=== PATIENT | female | born 1980 ===

== ENCOUNTER 2024-11-28 14:26 | Outpatient (AMB) | payer OTHER, SELFPAY ==
--- NOTE | 2024-11-28 14:39 | MHC.PC.OV ---
Vital Signs 11/28/24 14:41 Height 5 ft 6.54 in Weight 325 lb 4 oz BMI 51.6 BP 130/70 Blood Pressure Location Lt brachial Position Sitting Pulse 87 Pulse Source Pulse Oximeter Temp 97.1 F Temp Source Temporal Artery Scan Pulse Oximetry (%) 99 Oxygen Delivery Method Room Air Intake Visit Reasons: Establish care Intake Note: Patient is a new patient here to establish care for Asthma, hx DVT, Seizure. Transferring care from [facility] ([facility] Medical records have been requested and have not received. Professor Of German Required: No Advertising Sales Associate: Not Required per policy Accompanied by: Self / Same As Patient Allergies No Known Allergies Allergy (Verified 11/28/24 14:48) Medication List - Last Reconciled 11/28/24 by Ana Maria Espinoza PA-C No Known Home Meds Tobacco use date assessed: 11/28/24 Dental Screening Dental Screen Date: 11/28/24 Did you have a dental visit in the last 12 months?: No Did you have a dental problem in the last 6 months where you did not have access to dental care?: No Was dental information given to patient?: No HPI Establish care HPI Details 44 year old female coming to the office for the first time. She was seen by her last PCP 7 years ago. Presenting with recurrent leg swelling. She experiences bilateral leg swelling with an intermittent burning sensation that worsens with prolonged standing and improves somewhat with rest and elevation. She notes no pain in the calves or legs but describes a burning sensation when seated, exacerbated by stress, possibly due to her caregiving duties for her wheelchair-dependent daughter. She has attempted to use compression stockings but found them uncomfortable. Additionally, she reports ongoing muscular pain and tension in her back and upper arms related to stress over the past few months. 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 mammogram: order placed pap smear: referral placed [facility] Medical History History of seizure Surgical History History of 2 sections Family History Son Autism Daughter Angélica-Danlos disease Social History Housing: House Alcohol intake: never Patient Tobacco Use Status: Never used Tobacco e-Cigarette/Vaping Use: Never Used Second Hand Smoke Exposure: No service: No Current occupational status: employed Current occupation: [employer] Cognitive needs: No Hearing needs: No Vision needs: Yes (Glasses) Female Reproductive History Menstrual control method: none Questionnaire PHQ-9 Over the last 2 weeks, how often have you been bothered by any of the following problems? 1. Little interest or pleasure in doing things: not at all 2. Feeling down, depressed, or hopeless: not at all 3. Trouble falling or staying asleep, or sleeping too much: not at all 4. Feeling tired or having little energy: not at all 5. Poor appetite or overeating: not at all 6. Feeling bad about yourself - or that you are a failure or have let yourself or your family down: not at all 7. Trouble concentrating on things, such as reading the newspaper or watching television: not at all 8. Moving or speaking so slowly that other people could have noticed. Or the opposite - being so fidgety or restless that you have been moving around a lot more than usual: not at all 9. Thoughts that you would be better off or of hurting yourself in some way: not at all Total score: 0 Depression Screening Interpretation: Negative Depression Screening Done: Yes Source: Developed by Drs. John Barreto, Gabby Gavin, Cliff Marcelo and colleagues, with an educational dave from [employer]. Thrive Questionnaire Date Thrive assessed: 11/28/24 I am a: Patient What is your living situation today?: I have a steady place to live Within the past 12 months, did the food you bought not last and you didn't have the money to get more?: Never true Within the past 12 months, did you worry whether your food would run out before you got money to buy more?: Never true Do you have trouble paying for medicines?: No Do you have trouble getting transportation to medical appointments?: No Do you have trouble paying your heating and electricity bill?: No Do you have trouble taking care of your child, family member or friend?: No Do you have trouble with day-to-day activities such as bathing, preparing meals, shopping, managing finances, etc.?: No Are you currently unemployed and looking for a job?: No Are you interested in more education?: No Please select the resources that you would like help with: None Currently or been in a relationship where the following occur: No concerns reported THRIVE Score: 0 AUDIT C Alcohol Use Questionnaire (AUDIT-C) 1. How often do you have a drink containing alcohol?: Never Total Score: 0 RADHA-7 AMB Questionnaire RADHA-7 Date RADHA - 7 assessed: 11/28/24 Feeling nervous, anxious, or on edge: 0 = Not at all Not being able to stop or control worryin = Not at all Worrying too much about different things: 0 = Not at all Trouble relaxin = Not at all Being so restless that it is hard to sit still: 0 = Not at all Becoming easily annoyed or irritable: 0 = Not at all Feeling afraid as if something awful might happen: 0 = Not at all Total RADHA-7 score (0-4 normal; 5-9 mild; 10-14 moderate; 15-21 severe): 0 Source: Developed by Drs. John Barreto, Gabby Gavin, Cliff Marcelo and colleagues, with an educational dave from [employer]. RADHA-7 Assessment Billing RADHA-7 Assessment Tool: RADHA-7 Assessment 74533 Review of Systems Const Denies body aches, Denies chills, Denies fever(s), Denies headache(s) and Denies poor appetite Eyes Reports no additional complaints ENT Denies dizziness and Denies headache(s) Card Denies chest pain, Denies syncope, Denies irregular heart rhythm, Denies lightheadedness and Denies dyspnea Resp Denies cough and Denies dyspnea GI Denies nausea and Denies vomiting Reports no additional complaints Musc Details: Left shoulder and elbow pain Reports no additional complaints and Denies abnormal gait Skin/Breast Reports system reviewed and no additional complaints, except as documented Neuro Denies abnormal gait, Denies dizziness, Denies syncope and Denies headache(s) Psych Reports no additional complaints Physical exam (Primary Care) Vital Signs: Last Vital Signs Temp 97.1 F 11/28/24 14:41 Pulse 87 11/28/24 14:41 BP 130/70 04/14/25 14:41 Pulse Ox 99 11/28/24 14:41 Oxygen Delivery Method Room Air 11/28/24 14:41 BMI result Body Mass Index 51.6 Tobacco/Smoking Status: Tobacco use Status Tobacco use date assessed 11/28/24 11/28/24 14:46 Patient Tobacco Use Status Never used Tobacco 11/28/24 14:46 e-Cigarette/Vaping Use Never Used 11/28/24 14:46 PHQ-9: PHQ-9 Score PHQ-9: Total score 0 11/29/24 08:16 Depression Screening Interpretation: Negative Thrive Assessment: Date of Thrive Assessment Date Thrive assessed 11/28/24 11/28/24 14:46 Currently or been in a relationship where the following occur: No concerns reported Const General: cooperative, healthy appearing, comfortable and no acute distress Orientation/consciousness: patient oriented x3 HENMT Head: Yes normocephalic Ears: hearing grossly normal bilaterally General nose exam: Normal external nose present Eyes General: appearance normal, both eyes and all related structures Conjunctivae: conjunctivae normal Neck Neck: Yes full ROM and Yes no lymphadenopathy Resp Effort & Inspection: normal respiratory effort Auscultation: clear to auscultation bilaterally, no crackles, no rales, no rhonchi and no wheezes Cardio Rate: regular rate Rhythm: regular rhythm Skin General skin exam: no rashes or lesions noted Neuro General: patient oriented x3 Gait exam (Neuro): Normal gait present Extrem Other: Multiple varicosities of bilateral thighs. No tenderness to palpation of bilateral calves, no swelling, redness or warmth of bilateral calves. Tenderness to palpation over medial aspect of left elbow and pain with flexion and extension of left elbow. Tenderness to palpation over left shoulder General: Yes normal to inspection, Yes full ROM and No edema Psych Affect: normal affect Attitude: cooperative Insight: Good insight present (Psych) Judgement: Good judgement present (Psych) Coding Level of Care Code New Pt Level 4 (81505) Diagnoses Asthma J45.909 History of DVT (deep vein thrombosis) Z86.718 Morbid obesity with BMI of 50.0-59.9, adult E66.01; Z68.43 Screening for hypercholesterolemia Z13.220 Screening for diabetes mellitus Z13.1 Swelling of both lower extremities M79.89 Elbow pain, left M25.522 Left shoulder pain M25.512 Additional Codes RADHA-7 Assessment Billing - RADHA-7 Assessment Tool: RADHA-7 Assessment 49731 ([id number]) Assessment & Plan Assessment & Plan (1) Asthma: Comment: only with URI Code(s): J45.909 - Unspecified asthma, uncomplicated Category: Medical Plan: Asthma currently controlled on present medications. Continue on albuterol as needed. Avoid triggers such as allergies. (2) History of DVT (deep vein thrombosis): Comment: 16 years ago during - 12 years ago after the of her second child Code(s): Z86.718 - Personal history of other venous thrombosis and embolism Category: Medical Plan: Patient has previous history of to DVT both provoked due to . He has not been on anticoagulation years and has not had recurrence. Continue to monitor at this time. (3) Morbid obesity with BMI of 50.0-59.9, adult: Code(s): E66.01 - Morbid (severe) obesity due to excess calories; Z68.43 - Body mass index [BMI] 50.0-59.9, adult Category: Medical Plan: Healthy diet and regular exercise is encouraged. Referral placed to diesel service apprentice today (4) Screening for hypercholesterolemia: Code(s): Z13.220 - Encounter for screening for lipoid disorders Category: Medical Plan: Blood work ordered (5) Screening for diabetes mellitus: Code(s): Z13.1 - Encounter for screening for diabetes mellitus Category: Medical Plan: Blood work ordered (6) Swelling of both lower extremities: Code(s): M79.89 - Other specified soft tissue disorders Category: Medical Plan: Patient having chronic bilateral lower extremity swelling. She does have multiple varicosities of bilateral thighs. She is declining vascular surgery referral today. Low suspicion for DVT as there was no unilateral swelling, redness, pain or warmth. Given patient's DVT history advised her to monitor symptoms very carefully. Advised the use of compression stockings, elevation and exercise as tolerated. (7) Elbow pain, left: Code(s): M25.522 - Pain in left elbow Category: Medical Plan: Patient having pain to palpation of medial aspect of left elbow consistent with medial epicondylitis. Advised to avoid repetitive movements as well as rest the arm, ice as needed, compression sleeve as needed and Tylenol and ibuprofen for pain. If pain worsens or persists plan to refer to physical therapy (8) Left shoulder pain: Code(s): M25.512 - Pain in left shoulder Category: Medical Plan: Patient having left shoulder pain to palpation on exam today. She is state when she becomes stressed she does have pain in the shoulder. Likely musculoskeletal as she is having tenderness of the biceps as well as the trapezius. Advised patient to use Tylenol and ibuprofen as needed for pain as well as heating pad. If pain persist or worsen plan to obtain x-ray and/or physical therapy. Plan The patient and I discussed using compression stockings and leg elevation for her bilateral leg swelling. For the right elbow pain diagnosed as medial epicondylitis, an elbow compression sleeve, topical Diclofenac, and ice were recommended. I advised focusing on shoulder and arm stretches to alleviate stress-related tension. Bloodwork was ordered to investigate potential underlying causes of her symptoms. Referrals were placed for gynecologic and dietary consultations. A follow-up visit is planned in one month to evaluate her progress and adjust the management plan accordingly. Referral also placed to gynecology for annual Pap smears and mammogram. This note was constructed using voice recognition software. While every effort has been made to ensure accuracy and leather skinner, still areas may have been included sometimes these areas may affect the content or meeting of the given symptoms. Total time spent caring for the patient today was 30 minutes. This includes time spent before the visit reviewing the chart, time spent during the visit, and time spent after the visit and documentation. Patient was informed and verbally consented to the use of an ambient scribe for clinic note documentation during this visit. Orders: Orders Complete Blood Count Auto Diff 11/28/24 Z00.00 - Encounter for general adult medical examination without abnormal findings Vitamin B12 and Folate 11/28/24 Z00.00 - Encounter for general adult medical examination without abnormal findings Vitamin D 25-OH Total 11/28/24 Z00. - Encounter for general adult medical examination without abnormal findings Hemoglobin A1c 11/28/24 Z13.1 - Encounter for screening for diabetes mellitus Free T4 (Free Thyroxine) 11/28/24 Z00.00 - Encounter for general adult medical examination without abnormal findings MM tomosynthesis screening BI 11/28/24 Z12.31 - Encounter for screening mammogram for malignant neoplasm of breast Comprehensive Met. Panel 11/28/24 Z00.00 - Encounter for general adult medical examination without abnormal findings Lipid Panel 11/28/24 Z13.220 - Encounter for screening for lipoid disorders TSH reflex Free T4 11/28/24 Z00.00 - Encounter for general adult medical examination without abnormal findings Referrals HAUL CANE BRAKEMAN Referral Z12.4 - Encounter for screening for malignant neoplasm of cervix Nutrition/Dietitian Referral E66.01 - Morbid (severe) obesity due to excess calories, Z68.43 - Body mass index [BMI] 50.0-59.9, adult
[2024-11-28 14:41] VITALS: BP 130/70; PULSE 87; TEMP 36.2; O2SAT 99; BMI 51.6
--- OUTSIDE RECORDS SUMMARY | 2024-11-28 16:49 | XMS_ITS | Clinical Summary ---
Author Organization [facility] Address [address] [place] [address] Care Team Providers Care Communications Systems Engineer Name Role Phone Grant Levine MD Primary Care Provider [phone] Social History Tobacco Use Types Packs/Day Years Used Date Smoking Tobacco: Never Smokeless Tobacco: Never Comments Unknown Sex and Gender Information Value Date Recorded Sex Assigned at Not on file Legal Sex Female 5:43 AM EST Gender Identity Not on file Sexual Orientation Not on file Obstetrics History Plan of Treatment Health Maintenance Due Date Last Done Comments Breast Cancer Screening 1981 DTaP,Tdap,and Td Vaccines (1 - Tdap) 2000 Hepatitis B Vaccines (1 of 3 - 19+ 3-dose series) 2000 Cervical Cancer Screening: P ap Smear 2002 COVID-19 Vaccine (2023-2 5 season) 2024 Influenza Vaccine (Season Ended) 2025 HIB Vaccines Aged Out No longer eligi ble based on patient's age to complete this topic HPV Vaccines Aged Out No longer eligi ble based on patient's age to complete this topic Hepatitis A Vaccines Aged Out No long er eligible based on patient's age to complete this topic IPV Vaccines Aged Out No longer eligi ble based on patient's age to complete this topic MMR Vaccines Aged Out No longer eligi ble based on patient's age to complete this topic Meningococcal ACWY Vaccine Aged Out N o longer eligible based on patient's age to complete this topic Meningococcal B Vaccine Aged Out No l onger eligible based on patient's age to complete this topic Pneumococcal Vaccine: Pediat rics (0 to 5 Years) and At-Risk Patients (6 to 64 Years) Aged Out No longer eligible b ased on patient's age to complete this topic RSV Immunization Patients Un michelle 20 months Aged Out No longer eligible b ased on patient's age to complete this topic Varicella Vaccines Aged Out No longer eligible based on patient's age to complete this topic Care Teams Communications Systems Engineer Relationship Specialty Start Date End Date Grant Levine MD [address] [place] [address] [place] [id number] PCP - General Internal Medicine 03/06/20
== END 2024-11-28 15:24 | disposition home or self-care (01) ==
LOC: HO.HMCH 14:26
PROVIDERS: PCP Internal Medicine
DX: J45.909 Unspecified asthma, uncomplicated (principal); Z86.718 Personal history of other venous thrombosis and embolism; E66.01 Morbid (severe) obesity due to excess calories; Z68.43 Body mass index [BMI] 50.0-59.9, adult; Z13.220 Encounter for screening for lipoid disorders; Z13.1 Encounter for screening for diabetes mellitus; M79.89 Other specified soft tissue disorders; M25.522 Pain in left elbow; M25.512 Pain in left shoulder

== ENCOUNTER → 2024-11-28 14:26 | Outpatient (BNVA) | payer OTHER, SELFPAY | PROVIDERS: PCP Internal Medicine | DX: Z76.89 Persons encountering health services in other specified circumstances (principal); J45.909 Unspecified asthma, uncomplicated; E66.01 Morbid (severe) obesity due to excess calories; Z68.43 Body mass index [BMI] 50.0-59.9, adult; M79.89 Other specified soft tissue disorders; M25.522 Pain in left elbow; M25.512 Pain in left shoulder; Z86.718 Personal history of other venous thrombosis and embolism | CPT/HCPCS: 96127 ==

== ENCOUNTER 2024-12-02 09:49 | Outpatient (REF) | payer OTHER, SELFPAY ==
[2024-12-02 10:25] LABS: MANUAL DIFF FLAG NO
--- OUTSIDE RECORDS SUMMARY | 2024-12-02 10:33 | XMS_ITS | Clinical Summary ---
Author Organization [facility] Address [address] [place] [address] Care Team Providers Care Lead Burner Helper Name Role Phone Grant Levine MD Primary Care Provider Social History Tobacco Use Types Packs/Day Years [...] age to complete this topic Care Teams Lead Burner Helper Relationship Specialty Start Date End Date Grant Levine MD [address] [place] [address] [place] [id number] PCP - General Internal Medicine 03/06/20
[2024-12-02 10:56] LABS: Basophils Percent Auto 0.2 % (0-2); Eosinophils Percent Auto 0.3 % (0-4); Hematocrit 36.2 % (37.0-47.0); Hemoglobin 11.3 g/dl (12.0-16.0); Imm Gran Abs Auto 0.03 X10*3/uL (0.00-0.03); Imm Gran Pct Auto 0.3 % (0.0-0.4); Lymphocytes Absolute Auto 2.3 X10*3/uL (1.2-4.9); Lymphocytes Percent Auto 25.3 % (20-40); Mean Corpuscular HGB Conc 31.2 g/dl (31.0-35.0); Mean Corpuscular Hemoglobin 24.1 pg (27.0-33.0); Mean Corpuscular Volume 77.4 fL (80.0-98.0); Monocytes Absolute Auto 0.4 X10*3/uL (0.1-1.2); Monocytes Percent Auto 4.8 % (2-11); Neutrophils Absolute Auto 6.1 x10*3/uL (2.0-8.3); Neutrophils Percent Auto 69.1 % (45-73); Platelet Count 314 X10*3/uL (160-400); Red Blood Count 4.68 X10*6/uL (4.20-5.50); Red Cell Distribution Width 15.9 % (11.0-16.0); White Blood Count 8.9 X10*3/uL (4.8-10.8)
[2024-12-02 11:07] LABS: Estimated Average Glucose 120 mg/dL; Hemoglobin A1C 116.6316 umol/L; Hemoglobin A1c % 5.8 % (<6.0); Total Hemoglobin (HGBA1C) 2904.7964 umol/L
[2024-12-02 11:26] LABS: Alanine Aminotransferase 29 U/L (0-31); Albumin Level 3.6 g/dL (3.5-5.0); Anion Gap 8 (12-20); Aspartate Amino Transferase 20 U/L (5-31); Bilirubin Total 0.5 mg/dL (0.0-1.0); Blood Urea Nitrogen 10 mg/dL (9-16); Calcium 8.7 mg/dL (8.4-10.2); Carbon Dioxide 27 mmol/L (22-29); Chloride 107 mmol/L (96-108); Cholesterol 159 mg/dL (<200); Estimated Glomerular Filt Rate > 60; Glucose Random 88 mg/dL (60-115); HDL Cholesterol 49 mg/dL (>40); LDL Cholesterol Calculated 101 mg/dL (<100); Sodium 138 mmol/L (135-145); Total Protein 7.4 g/dL (6.5-8.0); Triglycerides 49 mg/dL (<150)
[2024-12-02 11:42] LABS: Free T4 (Free Thyroxine) 0.99 ng/dL (0.71-1.85); TSH reflex Free T4 1.06 uIU/mL (0.32-4.0)
[2024-12-02 12:00] LABS: Vitamin B12 616 pg/mL (200-900)
[2024-12-02 19:48] LABS: Alkaline Phosphatase 72 U/L (39-117)
== END 2024-12-02 09:50 | disposition home or self-care (01) ==
LOC: HO.LAB 09:49
DX: Z00.00 Encounter for general adult medical examination without abnormal findings (principal); Z13.220 Encounter for screening for lipoid disorders; Z13.1 Encounter for screening for diabetes mellitus; Z13.6 Encounter for screening for cardiovascular disorders
CPT/HCPCS: 36415; 80053; 80061; 82306; 82607; 82746; 83036; 84439; 84443; 85025

== ENCOUNTER 2024-12-30 08:51 | Outpatient (AMB) | payer OTHER, SELFPAY ==
--- NOTE | 2024-12-30 09:01 | MHC.PC.OV ---
Vital Signs 12/30/24 09:04 Height 5 ft 6.4 in Weight 322 lb 6 oz BMI 51.4 BP 136/74 Blood Pressure Location Lt brachial Position Sitting Pulse 63 Pulse Source Pulse Oximeter Temp 97.1 F Temp Source Temporal Artery Scan Pulse Oximetry (%) 98 Oxygen Delivery Method Room Air Intake Visit Reasons: annual exam Intake Note: Patient is here today for a physical. Coach Mechanic Required: No Collarette Separator: Not Required per policy Accompanied by: Self / Same As Patient Allergies No Known Allergies Allergy (Verified 12/30/24 09:35) Medication List - Last Reconciled 12/30/24 by Ana Maria Espinoza PA-C albuterol sulfate 90 mcg/actuation 1 inh inhalation QID cholecalciferol (vitamin D3) 25 mcg PO DAILY Tobacco use date assessed: 12/30/24 Dental Screening Dental Screen Date: 11/28/24 HPI annual exam HPI Details 44-year-old female with past medical history of asthma, obesity last seen 11/2024 coming in for annual exam. Patient reports continued left elbow pain that has been ongoing for several months. She does have a history of multiple fractures of the left elbow and is looking for further evaluation and treatment. She continues to have multiple varicosities and lower extremity swelling. She is requesting Lasix however given the chronicity conservative measures at more appropriate. She has tried compression stockings intermittently and did not find relief. She does have an active lifestyle and walks very frequently and does not often elevate her legs. She has no other concerns today [facility] Medical History History of seizure Surgical History History of 2 sections Family History Son Autism Daughter Angélica-Danlos disease Social History Housing: House Alcohol intake: never Patient Tobacco Use Status: Never used Tobacco e-Cigarette/Vaping Use: Never Used Second Hand Smoke Exposure: No service: No Current occupational status: employed Current occupation: [address] Cognitive needs: No Hearing needs: No Vision needs: Yes (Glasses) Questionnaire PHQ-9 Over the last 2 weeks, how often have you been bothered by any of the following problems? 1. Little interest or pleasure in doing things: not at all 2. Feeling down, depressed, or hopeless: not at all 3. Trouble falling or staying asleep, or sleeping too much: not at all 4. Feeling tired or having little energy: not at all 5. Poor appetite or overeating: not at all 6. Feeling bad about yourself - or that you are a failure or have let yourself or your family down: not at all 7. Trouble concentrating on things, such as reading the newspaper or watching television: not at all 8. Moving or speaking so slowly that other people could have noticed. Or the opposite - being so fidgety or restless that you have been moving around a lot more than usual: not at all 9. Thoughts that you would be better off or of hurting yourself in some way: not at all Total score: 0 Depression Screening Interpretation: Negative Depression Screening Done: Yes Source: Developed by Drs. John Barreto, Gabby Gavin, Cliff Marcelo and colleagues, with an educational dave from [employer]. Thrive Questionnaire Date Thrive assessed: 12/30/24 I am a: Patient What is your living situation today?: I have a steady place to live Within the past 12 months, did the food you bought not last and you didn't have the money to get more?: Sometimes True Within the past 12 months, did you worry whether your food would run out before you got money to buy more?: Sometimes True Do you have trouble paying for medicines?: No Do you have trouble getting transportation to medical appointments?: No Do you have trouble paying your heating and electricity bill?: Yes Do you have trouble taking care of your child, family member or friend?: No Do you have trouble with day-to-day activities such as bathing, preparing meals, shopping, managing finances, etc.?: No Are you currently unemployed and looking for a job?: No Are you interested in more education?: Yes Please select the resources that you would like help with: None Currently or been in a relationship where the following occur: No concerns reported THRIVE Score: 3 AUDIT C Alcohol Use Questionnaire (AUDIT-C) 1. How often do you have a drink containing alcohol?: Never Total Score: 0 RADHA-7 AMB Questionnaire RADHA-7 Date RADHA - 7 assessed: 11/28/24 Feeling nervous, anxious, or on edge: 0 = Not at all Not being able to stop or control worryin = Not at all Worrying too much about different things: 0 = Not at all Trouble relaxin = Not at all Being so restless that it is hard to sit still: 0 = Not at all Becoming easily annoyed or irritable: 0 = Not at all Feeling afraid as if something awful might happen: 0 = Not at all Total RADHA-7 score (0-4 normal; 5-9 mild; 10-14 moderate; 15-21 severe): 0 Source: Developed by Drs. John Barreto, Gabby Gavin, Cliff Marcelo and colleagues, with an educational dave from [employer]. RADHA-7 Assessment Billing RADHA-7 Assessment Tool: RADHA-7 Assessment 35752 Review of Systems Const Denies body aches, Denies fatigue, Denies fever(s), Denies frequent falls, Denies headache(s) and Denies weakness Eyes Reports no additional complaints and Denies change in vision ENT Denies dysphagia, Denies dizziness, Denies facial pain, Denies headache(s), Denies nasal congestion and Denies odynophagia Card Denies chest pain, Denies syncope, Denies irregular heart rhythm, Denies leg edema, Denies lightheadedness and Denies dyspnea Resp Denies cough and Denies dyspnea GI Denies constipation, Denies dysphagia, Denies dyspepsia, Denies diarrhea, Denies nausea, Denies odynophagia and Denies vomiting Denies urinary frequency, Denies dysuria, Denies urinary hesitancy and Denies urinary urgency Musc Details: Left elbow pain in bilateral lower extremity swelling that is chronic Denies back pain and Denies myalgias Skin/Breast Reports system reviewed and no additional complaints, except as documented Neuro Denies dizziness, Denies syncope, Denies frequent falls, Denies headache(s) and Denies weakness Psych Reports no additional complaints Endo Denies fatigue Physical exam (Primary Care) Vital Signs: Last Vital Signs Temp 97.1 F 12/30/24 09:04 Pulse 63 12/30/24 09:04 BP 136/74 12/30/24 09:04 Pulse Ox 98 12/30/24 09:04 Oxygen Delivery Method Room Air 12/30/24 09:04 BMI result Body Mass Index 51.4 Tobacco/Smoking Status: Tobacco use Status Tobacco use date assessed 12/30/24 12/30/24 09:11 Patient Tobacco Use Status Never used Tobacco 12/30/24 09:11 e-Cigarette/Vaping Use Never Used 12/30/24 09:11 PHQ-9: PHQ-9 Score PHQ-9: Total score 0 12/30/24 09:22 Depression Screening Interpretation: Negative Thrive Assessment: Date of Thrive Assessment Date Thrive assessed 12/30/24 12/30/24 09:11 Currently or been in a relationship where the following occur: No concerns reported Const General: cooperative, healthy appearing, comfortable and no acute distress Orientation/consciousness: patient oriented x3 HENMT Head: Yes normocephalic Ears: hearing grossly normal bilaterally, external ears normal, TM's normal bilaterally and EAC's normal General nose exam: Normal external nose present Face and sinus: Yes normal facial exam and Yes sinuses nontender Mouth: Normal oral and palatal mucosa present and tongue normal Throat: Yes posterior oropharynx normal Eyes General: appearance normal, both eyes and all related structures Conjunctivae: conjunctivae normal Pupils: Equal, round and reactive pupils present EOM: EOMs intact bilaterally and No Nystagmus present Neck Neck: Yes normal visual inspection, Yes full ROM and Yes no lymphadenopathy Chest Chest palpation & inspection: normal inspection of the chest Resp Effort & Inspection: normal respiratory effort Auscultation: clear to auscultation bilaterally, no crackles, no rales, no rhonchi, no wheezes and breath sounds present Cardio Rate: regular rate Rhythm: regular rhythm Peripheral pulses: radial pulses present and dorsalis pedis present GI Inspection: Yes normal to inspection and No Abdominal wall edema Palpation (GI): Soft to palpation, not firm and nontender Auscultation: normal bowel sounds Rectal Exam - Female: deferred General: Yes no CVA tenderness Back/Spine/Pelvis Back: no CVA tenderness Skin General skin exam: no rashes or lesions noted Neuro General: patient oriented x3 Cranial nerves: Yes Equal, round and reactive pupils present, Yes Midline tongue present, Yes Ability to bilaterally elevate shoulders present and No Nystagmus present Gait exam (Neuro): Normal gait present Extrem Other: 1+ pitting edema of bilateral lower extremities. Multiple varicosities of the right lower extremity. No tenderness to palpation of bilateral calves. No redness, warmth or erythema of bilateral lower extremities. Strength, sensation, pulses intact bilateral lower extremities General: Yes normal to inspection, Yes full ROM, No no pedal edema and No edema Psych Speech and movement: Normal speech and movement present Affect: normal affect Insight: Good insight present (Psych) Judgement: Good judgement present (Psych) Coding Level of Care Code Est Pt Prev Care 40-64y(89003) Diagnoses Annual physical exam Z00.00 Morbid obesity with BMI of 50.0-59.9, adult E66.01; Z68.43 History of DVT (deep vein thrombosis) Z86.718 Asthma J45.909 Swelling of both lower extremities M79.89 Varicose veins of both lower extremities I83.93 Elbow pain, left M25.522 Additional Codes RADHA-7 Assessment Billing - RADHA-7 Assessment Tool: RADHA-7 Assessment 92719 ([id number]) Assessment & Plan Assessment & Plan (1) Annual physical exam: Code(s): Z00.00 - Encounter for general adult medical examination without abnormal findings Category: Medical Plan: Patient is due for Pap smear and mammogram orders were placed at last visit and patient has scheduled appointments. Blood work was reviewed with patient today and is in the normal limits. (2) Morbid obesity with BMI of 50.0-59.9, adult: Code(s): E66.01 - Morbid (severe) obesity due to excess calories; Z68.43 - Body mass index [BMI] 50.0-59.9, adult Category: Medical Plan: Healthy diet and regular exercise is encouraged. Patient has a appointment with air force pilot in January (3) History of DVT (deep vein thrombosis): Comment: 16 years ago during - 12 years ago after the of her second child Code(s): Z86.718 - Personal history of other venous thrombosis and embolism Category: Medical Plan: Patient has previous history of to DVT both provoked due to . He has not been on anticoagulation years and has not had recurrence. Continue to monitor at this time. (4) Asthma: Comment: only with URI Code(s): J45.909 - Unspecified asthma, uncomplicated Category: Medical Plan: Asthma currently controlled on present medications. Continue on albuterol as needed. Avoid triggers such as allergies. (5) Swelling of both lower extremities: Code(s): M79.89 - Other specified soft tissue disorders Category: Medical Plan: Patient having chronic bilateral lower extremity swelling. She does have multiple varicosities of bilateral thighs. Low suspicion for DVT as there was no unilateral swelling, redness, pain or warmth and symptoms are reported as chronic. Given patient's DVT history advised her to monitor symptoms very carefully. Advised the use of compression stockings, elevation and exercise as tolerated. Referral was placed to vascular surgery as well (6) Varicose veins of both lower extremities: Code(s): I83.93 - Asymptomatic varicose veins of bilateral lower extremities Category: Medical Plan: See above (7) Elbow pain, left: Code(s): M25.522 - Pain in left elbow Category: Medical Plan: Patient having pain to palpation of medial aspect of left elbow consistent with medial epicondylitis. Advised to avoid repetitive movements as well as rest the arm, ice as needed, compression sleeve as needed and Tylenol and ibuprofen for pain. Pain is about the same as last time plan to refer to PT and obtain XR. Plan This note was constructed using voice recognition software. While every effort has been made to ensure accuracy and tank shop supervisor, still areas may have been included sometimes these areas may affect the content or meeting of the given symptoms. Total time spent caring for the patient today was 30 minutes. This includes time spent before the visit reviewing the chart, time spent during the visit, and time spent after the visit and documentation. Patient was informed and verbally consented to the use of an ambient scribe for clinic note documentation during this visit. Orders: Orders PT Evaluation and Treatment Today M25.522 - Pain in left elbow XR elbow LT 2V Today M25.522 - Pain in left elbow Referrals Vascular Surgery Referral I83.93 - Asymptomatic varicose veins of bilateral lower extremities, M79.89 - Other specified soft tissue disorders
[2024-12-30 09:04] VITALS: BP 136/74; PULSE 63; TEMP 36.2; O2SAT 98; BMI 51.4
--- OUTSIDE RECORDS SUMMARY | 2024-12-30 09:05 | XMS_ITS | Clinical Summary ---
Author Organization [facility] ity Address [address] [place] [address] Care Team Providers Care Manager Social Media Name Role Phone Grant Levine MD Primary [...] age to complete this topic Care Teams Manager Social Media Relationship Specialty Start Date End Date Grant Levine MD [address] [place] [address] [place] [address] PCP - General Internal Medicine 03/06/20
== END 2024-12-30 09:47 | disposition home or self-care (01) ==
LOC: HO.HMCH 08:52
DX: Z00.00 Encounter for general adult medical examination without abnormal findings (principal); E66.01 Morbid (severe) obesity due to excess calories; Z68.43 Body mass index [BMI] 50.0-59.9, adult; Z86.718 Personal history of other venous thrombosis and embolism; J45.909 Unspecified asthma, uncomplicated; M79.89 Other specified soft tissue disorders; I83.93 Asymptomatic varicose veins of bilateral lower extremities; M25.522 Pain in left elbow

== ENCOUNTER → 2024-12-30 08:51 | Outpatient (BNVA) | payer OTHER, SELFPAY | DX: Z00.00 Encounter for general adult medical examination without abnormal findings (principal); E66.01 Morbid (severe) obesity due to excess calories; Z68.43 Body mass index [BMI] 50.0-59.9, adult; J45.909 Unspecified asthma, uncomplicated; M79.89 Other specified soft tissue disorders; I83.93 Asymptomatic varicose veins of bilateral lower extremities; M25.522 Pain in left elbow; Z86.718 Personal history of other venous thrombosis and embolism | CPT/HCPCS: 96127 ==

== ENCOUNTER 2025-01-05 13:37 | Outpatient (AMB) | payer OTHER, SELFPAY ==
--- NOTE | 2025-01-05 13:46 | MHC.OFFVIS ---
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 She has varicose veins on both legs that are painful. It has been over 15 years that she has had these issues. 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 We utilized Skylar as an dog groomer. Complaints include pain over varicosities, swelling of lower extremities, cramping, fatigue, and heaviness of the lower extremities. It has been affecting their daily activities including walking, standing, and physical activity. It is noted more so in the right leg. She states these symptoms have been going on for appx 16y and have been worsening. She states she did have to deliver her child early due to blood clots. She is no longer on anticoagulation and has not had any blood clots since. She states she gets pain from the top of the thigh to her ankle; she states the ankle pain can get very bad. She is a nonsmoker and is not a diabetic. Patient denies any previous venous surgeries/injections. Patient has a hx of DVT during >15y ago; she is no longer on AC and has not had any BC since. Patient denies any history of phlebitis. Trial of compression includes - elevation with little relief. They now present for vascular evaluation regarding their varicose veins. [facility] Medical History History of seizure Surgical History History of 2 sections Family History Son Autism Daughter Angélica-Danlos disease Social History Housing: House Alcohol intake: never Patient Tobacco Use Status: Never used Tobacco e-Cigarette/Vaping Use: Never Used Second Hand Smoke Exposure: No service: No Current occupational status: employed Current occupation: [employer] Cognitive needs: No Hearing needs: No Vision needs: Yes (Glasses) Review of Systems Const Reports as per HPI and Denies weakness ENT Reports Normal hearing present and Denies dizziness Card Reports as per HPI, Denies chest pain, Denies chest pain at rest, Denies chest pain with activity, Denies dyspnea and Denies dyspnea on exertion Resp Reports as per HPI, Denies cough, Denies dyspnea and Denies dyspnea on exertion GI Reports as per HPI, Denies abdominal pain, Denies nausea and Denies vomiting Musc Denies numbness Skin/Breast Reports as per HPI, Denies erythema and Denies wounds Neuro Reports Normal hearing present, Denies dizziness, Denies numbness, Denies Sensory deficit (Neuro) and Denies weakness Psych Reports no additional complaints Endo Reports no additional complaints Physical Exam Const General: healthy appearing and no acute distress Orientation/consciousness: patient oriented x3 HEENT Head: Yes normal to inspection Ears: hearing grossly normal bilaterally Mouth: Normal oral and palatal mucosa present Resp Effort & Inspection: normal respiratory effort and able to speak in complete sentences Auscultation: clear to auscultation bilaterally Cardio Jugular venous distension: no JVD Rate: regular rate Rhythm: regular rhythm Heart sounds: S1 normal heart sound present and S2 normal heart sound present Bruits: no abdominal aortic bruits, no carotid bruits, no femoral bruits and no renal bruits Peripheral pulses: Peripheral pulses 2+ throughout GI Inspection: Yes normal to inspection Palpation (GI): No Abdominal aortic bruit present Skin General skin exam: no rashes or lesions noted Wounds: no wounds Hair: normal Neuro General: patient oriented x3 Cranial nerves: Yes Normal hearing present Cognition (Neuro): normal cognition Gait exam (Neuro): Normal gait present Motor exam (neuro): 5/5 motor strength present throughout Sensory Exam: No Sensory deficit (Neuro) Extrem Other: Right lower extremity: +3 peripheral edema noted. >5cm rope like tortuosity noted on the medial thigh anteriorly and another below the knee on the pretibial area. Tortuosities are painful to palpation, particularly the one on the thigh. Telangiectases noted around the ankle. Light erythematous discoloration noted from the ankle to mid-calf circumferentially. Left lower extremity: +3 peripheral edema noted. No discoloration, tortuosities, or varicosities noted. CEAP: C - 4 E - primary A - superficial P - reflux General: Yes normal to inspection, Yes full ROM, Yes capillary refill normal and Yes normal gait Assessment & Plan Assessment & Plan (1) Varicose veins of both lower extremities with inflammation: Code(s): I83.11 - Varicose veins of right lower extremity with inflammation; I83.12 - Varicose veins of left lower extremity with inflammation Category: Medical Plan: Dinah is presenting today on a referral from her PCP for concerns of lower extremity swelling, pain, and discoloration with varicosities. In short, the patient has evidence of venous insufficiency. I have discussed the pathophysiology with the patient. In addition I have provided informational material regarding venous disease to the patient. We have discussed conservative measures including compression, elevation, and exercise. We were unable to give her the handout about compression socks, due to only having it in Macedonian, but Skylar was able to explain about the compression socks and where to get them. I have taken the liberty of ordering venous insufficiency testing with the patient. They will follow up with me after testing. The patient had an opportunity to ask questions regarding the treatment plan. All questions were answered. Imaging studies, laboratory studies and physical exam results were discussed and reviewed in detail. No major barriers to understanding were identified. The patient expressed understanding and agreement with the above treatment plan. The patient is aware they should contact our office by phone for worsening of the current condition or the appearance of new symptoms. Thank you for allowing me to participate in the vascular care of this patient. If you have any questions or concerns regarding the treatment for the above condition please do not hesitate to contact me. The office telephone contact is [phone]. This note is constructed using voice recognition software. While every effort has been made to ensure accuracy, family practice medical doctor errors may have been included. Thank you for allowing me to participate in the care of your patient. Yours sincerely, REILLY Brumfield Orders: Orders US venous duplex LE BI 1 Week I83.11 - Varicose veins of right lower extremity with inflammation, I83.12 - Varicose veins of left lower extremity with inflammation Coding Level of Care Code New Pt Level 4 (80073) Diagnoses Varicose veins of both lower extremities with inflammation I83.11; I83.12
--- OUTSIDE RECORDS SUMMARY | 2025-01-05 13:48 | XMS_ITS | Clinical Summary ---
[facility] Organization [facility] Address [address] [place] [address] Care Team Providers Care Pathologist Assistant Name Role Phone Grant Levine MD Primary Care Provider [phone] Social History Tobacco Use Types Packs/Day Years [...] age to complete this topic Care Teams Pathologist Assistant Relationship Specialty Start Date End Date Grant Levine MD [address] [place] [address] [place] [address] PCP - General Internal Medicine 03/06/20
== END 2025-01-05 14:18 | disposition home or self-care (01) ==
LOC: HO.HVS 13:38
PROVIDERS: Visit Provider Physician Assistant Surgical
DX: I83.11 Varicose veins of right lower extremity with inflammation (principal); I83.12 Varicose veins of left lower extremity with inflammation
CPT/HCPCS: 99204

== ENCOUNTER → 2025-01-05 13:37 | Outpatient (BNVA) | payer OTHER, SELFPAY | PROVIDERS: Visit Provider Physician Assistant Surgical ==

== ENCOUNTER 2025-01-18 10:32 | Outpatient (REF) | payer OTHER, SELFPAY ==
--- NOTE | ~2025-01-18 | US_ITS ---
EXAMINATION: US TRIPLEX LOWER EXTREMITY, BILATERAL CLINICAL INFORMATION: Varicose veins of the right lower extremity with inflammation, prior DVT COMPARISON: None. TECHNIQUE: Color flow triplex imaging and compression Doppler was performed to evaluate both the deep and the superficial systems bilaterally. To evaluate the superficial system, the examination was performed in the upright position. Color-flow Doppler ultrasound and compression ultrasound were utilized. In addition, maneuvers were utilized to demonstrate reflux. FINDINGS: 1. DEEP VENOUS ULTRASOUND OF THE RIGHT LOWER EXTREMITY: Common Femoral Vein: Compressible, normal respiratory variation and augmented flow. Femoral Vein: Compressible, normal color flow and augmentation. Popliteal Vein: Compressible, normal augmentation. Deep Reflux: There is no evidence of reflux in the deep system in either the common femoral vein, superficial femoral or the popliteal vein. There is no evidence of a Guan's cyst. 2. SUPERFICIAL ULTRASOUND WITH DOPPLER OF RIGHT LOWER EXTREMITY: GREAT SAPHENOUS VEIN: Saphenofemoral Junction: 1.1 cm; Reflux: 1328 ms Proximal Thigh: 0.6 cm; Reflux: 0 ms Mid Thigh: Obscured due to body habitus Distal Thigh: Obscured by body habitus At Knee: 0.2 cm; Reflux: 1876 ms Proximal Calf: 1.0 cm; Reflux: 2408 ms Mid Calf: 0.7 cm; Reflux: 2376 ms Distal Calf: 0.3 cm; Reflux: 1916 ms Lateral accessory SAPHENOUS VEIN: Saphenofemoral Junction: 1.2 cm; Reflux: 2560 ms Mid Thigh: 0.4 cm; Reflux: 0 ms DUPLICATED MEDIAL GREAT SAPHENOUS VEIN: Diameter: None imaged Reflux: NA DUPLICATED LATERAL GREAT SAPHENOUS VEIN: Diameter: None imaged Reflux: NA SMALL SAPHENOUS VEIN: Possible proximal thigh origin, not well demonstrated due to body habitus Saphenopopliteal Junction: 0.6 cm; Reflux: 0 ms Mid calf: 0.2 cm; Reflux: 0 ms Distal: 0.5 cm; Reflux: 2012 ms VEIN OF GIACOMINI: Size: 0.4 cm Reflux: Not documented PERFORATORS: Location: mid thigh Small saphenous vein, midcalf Size: 0.5 cm Reflux: 0 Location: Distal thigh to varicose vein Size: 3.2 cm Reflux: 0 VARICOSITIES: Location: Small saphenous vein, midcalf Size: 0.3 cm Reflux: 668 ms Location: Small saphenous vein, distal calf Size: 0.5 cm Reflux: 720 ms Location: Accessory saphenous vein, proximal and mid thigh Size: Up to 1.7 cm Reflux: 2060 Location: Greater saphenous vein, proximal thigh Size: 0.3 cm Reflux: 0 Location: Distal thigh Size: 0.6 cm Reflux: 2232 ms Location: Greater saphenous vein, proximal calf Size: 0.8 cm Reflux: 2612 ms Location: Greater saphenous vein, mid calf Size: 0.7 cm Reflux: 2376 ms Location: Greater saphenous vein, distal calf Size: 0.7 cm Reflux: 1648 ms 3. DEEP VENOUS ULTRASOUND OF THE LEFT LOWER EXTREMITY: Common Femoral Vein: Compressible, normal respiratory variation and augmented flow. Femoral Vein: Compressible, normal color flow and augmentation. Popliteal Vein: Compressible, normal augmentation. Deep Reflux: There is no evidence of reflux in the deep system in either the common femoral vein, superficial femoral or the popliteal vein. There is no evidence of a Guan's cyst. 4. SUPERFICIAL ULTRASOUND WITH DOPPLER OF LEFT LOWER EXTREMITY: GREAT SAPHENOUS VEIN: Saphenofemoral Junction: 1.4 cm; Reflux: 0 ms Proximal Thigh: 0.5 cm; Reflux: 0 ms Mid Thigh: 0.4 cm; Reflux: 0 ms Distal Thigh: 0.3 cm; Reflux: 0 ms At Knee: 0.3 cm; Reflux: 0 ms Proximal Calf: 0.4 cm; Reflux: 0 ms Mid Calf: 0.3 cm; Reflux: 2324 ms Distal Calf: 0.3 cm; Reflux: 2360 ms Lateral accessory GREAT SAPHENOUS VEIN: Saphenofemoral Junction: 0.6 cm; Reflux: 0 ms Mid Thigh: 0.3 cm; Reflux: 1328 ms DUPLICATED MEDIAL GREAT SAPHENOUS VEIN: Diameter: None imaged Reflux: NA DUPLICATED LATERAL GREAT SAPHENOUS VEIN: Diameter: None imaged. Reflux: NA SMALL SAPHENOUS VEIN: Popliteal vein origin Saphenopopliteal Junction: 0.4 cm; Reflux: 0 ms Proximal: 0.2. cm; Reflux: 0 ms Distal: 0.2 cm; Reflux: 2156 ms VEIN OF GIACOMINI: Size: NA Reflux: NA PERFORATORS: Location: Greater saphenous vein, proximal thigh Size: 0.4 cm Reflux: 0 VARICOSITIES: Location: to varicose vein, proximal thigh Size: 0.4 cm Reflux: 0 Location: Greater saphenous vein, proximal thigh Size: 0.2 cm Reflux: 0 Location: Greater saphenous vein, mid thigh Size: 0.4 cm Reflux: 0 Location: Greater saphenous vein, knee Size: 0.2 cm Reflux: 0 Location: Greater saphenous vein, proximal calf Size: 0.3 cm Reflux: 2100 ms US/US venous duplex LE BI IMPRESSION: Bilateral lower extremity venous incompetence and varicosities. Electronically signed by: Jayesh Jackson MD 01/18/2025 03:59 PM EDT
--- OUTSIDE RECORDS SUMMARY | 2025-01-18 11:14 | XMS_ITS | Clinical Summary ---
Author Organization [facility] Address [address] [place] [address] Care Team Providers Care Mouthpiece Maker Name Role Phone Grant Levine MD Primary Care Provider [phone] Social History Tobacco Use Types Packs/Day Years [...] age to complete this topic Care Teams Mouthpiece Maker Relationship Specialty Start Date End Date Grant Levine MD [address] [place] [address] [place] [id number] PCP - General Internal Medicine 03/06/20
== END 2025-01-18 10:33 | disposition home or self-care (01) ==
LOC: HO.US 10:32
PROVIDERS: Visit Provider Physician Assistant Surgical
DX: I83.11 Varicose veins of right lower extremity with inflammation (principal); I83.12 Varicose veins of left lower extremity with inflammation
CPT/HCPCS: 93970

== ENCOUNTER → 2025-01-18 10:36 | Outpatient (BNV) | payer OTHER, SELFPAY | PROVIDERS: Visit Provider Radiology Diagnostic Radiology | DX: I83.813 Varicose veins of bilateral lower extremities with pain (principal) | CPT/HCPCS: 93970 ==

== ENCOUNTER 2025-01-23 08:52 | Outpatient (AMB) | payer OTHER, SELFPAY ==
--- OUTSIDE RECORDS SUMMARY | 2025-01-23 09:05 | XMS_ITS | Clinical Summary ---
Author Organization [facility] Address [address] [place] [address] Care Team Providers Care Peoplesoft Crm Developer Name Role Phone Grant Levine MD Primary Care Provider Steve ilable Allergies No known active allergies Medications No known medications Active Problems No known active problems Social History Tobacco Use Types Packs/Day Years Used Date Smoking Tobacco: Never Smokeless Tobacco: Never Sex Assigned at Date Recorded Not on file Last Filed Vital Signs Vital Sign Reading Time Taken Comments Blood Pressure 128/72 07/04/2020 11:29 AM EST Pulse 76 07/04/2020 11:29 AM EST Temperature - - Respiratory Rate 16 05/22/2020 3:51 PM EDT Oxygen Saturation - - Inhaled Oxygen Concentration - - Weight 134.1 kg (295 lb 9.6 oz) 020 11:29 AM EST Height 170.3 cm (5' 7.05 ) 07/04/2020 1 1:29 AM EST Body Mass Index 46.23 07/04/2020 11:29 AM EST Plan of Treatment Health Maintenance Due Date Last Done Comments Covid-19 Vaccine (#1) 01/17/1982 DTAP/TDAP/TD (1 - Tdap) 2000 CHOLESTEROL SCREENING 2001 CERVICAL CANCER SCREENING 2002 BASELINE HEALTH EXAM 40-64 2021 MAMMOGRAM 2021 BMI CHECK/ADVISE 08/17/2024 07/04/2020, , 05/22/2020, Additional history exists DEPRESSION SCREENING/FOLLOWUP 08/17/2024 SOCIAL NEEDS SCREENING 08/17/2024 INFLUENZA (Season Ended) 2025 PNEUMOCOCCAL VACCINE FOR HIG H RISK PATIENTS (#1) 2046 Care Teams Peoplesoft Crm Developer Relationship Specialty Start Date End Date Grant Levine MD PCP - General Internal Medicine 03/06/20
--- NOTE | 2025-01-23 09:08 | A.OFFVIS_ITS ---
VS Expanded 01/23/25 09:09 01/23/25 09:21 Height 5 ft 6.4 in 5 ft 6.4 in Weight 324 lb 8.327 oz 325 lb BMI 51.7 51.8 Intake Visit Reasons: Morbid (severe) obesity due to excess calories Allergies No Known Allergies Allergy (Verified 01/05/25 13:47) Nutrition Presentation Details: Pt presents for MNT for morbid obesity d/t excessive calorie intake Pt reports challenges to increase calorie intake related to stress eating/fast eating /no meal routine Typical meal intake B: omits or may have 3 eggs/2-4 toast 40 calorie , water or coffee/sugar/milk at DD L: may omit of have fitters, water D: 8 pm rice/chicken/oliveira, water food frequency fish : 0x/wk fruits:0/d vegetables: 1x/wk dairy: 3-d/ protein foods: eggs/chicken/beef beverages: water, coffee Lives with child with autism and father BS Monitoring Most Recent Diabetes Results: Cholesterol 159 mg/dL (<200) 12/02/24 HDL Cholesterol 49 mg/dL (>40) 12/02/24 Triglycerides 49 mg/dL (<150) 12/02/24 Creatinine 0.60 mg/dL (0.5-1.4) 12/02/24 Blood Urea Nitrogen 10 mg/dL (9-16) 12/02/24 Sodium 138 mmol/L (135-145) 12/02/24 Potassium 4.0 mmol/L (3.3-5.1) 12/02/24 Chloride 107 mmol/L (96-108) 12/02/24 Carbon Dioxide 27 mmol/L (22-29) 12/02/24 Calcium 8.7 mg/dL (8.4-10.2) 12/02/24 AST 20 U/L (5-31) 12/02/24 ALT 29 U/L (0-31) 12/02/24 Total Protein 7.4 g/dL (6.5-8.0) 12/02/24 Albumin 3.6 g/dL (3.5-5.0) 12/02/24 CLU-Saehxdd-Me.Jeor Equation Height: 5 ft 6.4 in Weight: 325 lb Resting Metabolic Rate: 2154.27 Calculated Activity Level: Sedentary Calories Needed to Maintain Weight: 2585.12 Diagnosis Nutrition problem #1: overweight/obesity As related to (etiology) #1: diagnosis As evidenced by (sign/symptom) #1: high BMI (51.8 02/08) and knowledge deficit of diet [facility] Medical History History of seizure Surgical History History of 2 sections Family History Son Autism Daughter Angélica-Danlos disease Social History Housing: House Alcohol intake: never Patient Tobacco Use Status: Never used Tobacco e-Cigarette/Vaping Use: Never Used Second Hand Smoke Exposure: No service: No Current occupational status: employed Current occupation: [email or web address] Cognitive needs: No Hearing needs: No Vision needs: Yes (Glasses) Assessment & Plan Assessment & Plan (1) Morbid obesity with BMI of 50.0-59.9, adult: Code(s): E66.01 - Morbid (severe) obesity due to excess calories; Z68.43 - Body mass index [BMI] 50.0-59.9, adult Category: Medical Plan: Wt: 148 Kg ( 02/08 ) Est kcal needs as per MSJ: 2600 (40% carb, 30% protein/fat) Est fluid needs as per 25-30 ml/d: 3700 Est prot per day as per 1 g/kg bw: 150 Recommend fiber intake : 8-10 g per day and gradually increase to 25-28 g per day for women and 35-38 g for men or as tolerated Recommend sodium intake per day : less than 2000 mg Educated patient on: ( R = reviewed V = verbalizes understanding N/R = needs review N/A = not applicable * Food sources of carbohydrate, adequate serving sizes and its role in various health conditions: R * Differences between complex carbohydrates a simple carbohydrates, role of fiber in diet: R * Lean protein sources of foods: R V NR * Differences between types of fats and role in diet (mono on saturated fat fatty acids, saturated fatty acids, trans fats): R , low fat basic concepts * Food sources of sodium in salt and healthy modifications for heart health in kidney health: R V R/V * Vitamins and minerals: R V N/R * Healthy plate [id number] concept: R V N/R * Physical activity: Benefits a precaution: R V N/R * Patient Instructions: Work on reducing amount of fat added to the foods (fried foods in butter, oils, reduce on sour cream, sauces, dips, cheese ) Reduce portion of starch to 1 cup cooked and portion of starchy vegetables to 1 cup at dinner time Coding Level of Care Code Nutr Indiv Intake (84329) Diagnoses Morbid obesity with BMI of 50.0-59.9, adult E66.01; Z68.43 Time Spent (min) 30
[2025-01-23 09:09] VITALS: BMI 51.7
[2025-01-23 09:21] VITALS: BMI 51.8
== END 2025-01-23 09:53 | disposition home or self-care (01) ==
LOC: HO.ENCR 08:53
PROVIDERS: Visit Provider Dietitian, Registered
DX: E66.01 Morbid (severe) obesity due to excess calories (principal); Z68.43 Body mass index [BMI] 50.0-59.9, adult

== ENCOUNTER → 2025-01-23 08:52 | Outpatient (BNVA) | payer OTHER, SELFPAY | PROVIDERS: Visit Provider Dietitian, Registered | DX: Z71.3 Dietary counseling and surveillance (principal); E66.01 Morbid (severe) obesity due to excess calories; Z68.43 Body mass index [BMI] 50.0-59.9, adult | CPT/HCPCS: 97802 ==

== ENCOUNTER 2025-01-31 14:00 | Outpatient (AMB) | payer OTHER, SELFPAY ==
--- NOTE | 2025-01-31 14:04 | A.OFFVIS_ITS ---
Vital Signs 01/31/25 14:05 Height 5 ft 6.4 in Weight 325 lb BMI 51.8 Intake Visit Reasons: follow up Vi 01/18/25 Intake Note: follow up 01/18/25, pt states has had VV 17+ yrs w/ and the right LE is worse than the left LE. Does have large rope like VV bilateral LE but worse on the right thigh Civil Engineering Draftsperson Required: No Accompanied by: Self / Same As Patient Allergies No Known Allergies Allergy (Verified 01/31/25 14:09) HPI HPI follow up [facility] 01/18/25: Details: Very pleasant 44-year-old female presents for follow-up regarding venous insufficiency. She has significantly swollen large varicosities in particular large varicosity in the right thigh. It has been a source of pain and discomfort for her for several years. She now presents for follow-up with venous insufficiency testing. [facility] Medical History History of seizure Surgical History History of 2 sections Family History Son Autism Daughter Angélica-Danlos disease Social History Housing: House Alcohol intake: never Patient Tobacco Use Status: Never used Tobacco e-Cigarette/Vaping Use: Never Used Second Hand Smoke Exposure: No service: No Current occupational status: employed Current occupation: [employer] Cognitive needs: No Hearing needs: No Vision needs: Yes (Glasses) Review of Systems Const Reports as per HPI ENT Reports no additional complaints Card Denies chest pain, Denies chest pain at rest and Denies chest pain with activity Resp Denies chest congestion and Denies cough GI Reports no additional complaints Musc Details: pain over varicosities, aching of lower extremities, swelling, cramping, heaviness and tiredness, itching Denies abnormal gait Skin/Breast Reports pruritus and Denies wounds Neuro Reports no additional complaints and Denies abnormal gait Psych Denies no additional complaints Physical Exam Vital Signs: BMI result Body Mass Index 51.8 Const General: cooperative, healthy appearing and comfortable Orientation/consciousness: oriented to person, oriented to place and oriented to time Neck Carotids: no bruits Chest Chest palpation & inspection: normal inspection of the chest and normal palpation of entire chest wall Resp Effort & Inspection: normal respiratory effort and able to speak in complete sentences Cardio Rate: regular rate Heart sounds: S1 normal heart sound present and S2 normal heart sound present Peripheral pulses: Peripheral pulses 2+ throughout GI Inspection: Yes normal to inspection Skin Other: +2 edema, large rope-like varicosities greater than 4 mm CEAP Classification C4 - skin color changes Ep - Etiology Primary As - superficial veins P - reflux General skin exam: dry skin Neuro General: oriented to person, oriented to place and oriented to time Extrem Right lower extremity: full ROM, normal capillary refill and edema Left lower extremity: full ROM, normal capillary refill and edema Psych Mental Status: mental status grossly normal Results Reviewed Results Reviewed: Brief summary of venous insufficiency testing is as follows: right great saphenous vein: Positive right small saphenous vein: negative right accessory vein: none present left great saphenous vein: negative left small saphenous vein: Positive at calf left accessory vein: none present Please note there is no evidence of any venous aneurysms or significant tortuosity Assessment & Plan Assessment & Plan (1) Varicose veins of right lower extremity with inflammation: Code(s): I83.11 - Varicose veins of right lower extremity with inflammation Category: Medical Plan: This patient has varicose veins with inflammation. They continue to be a source of discomfort for the patient. The patient has tried conservative treatment with compression, leg elevation and exercise program for over 3 months time. They have been compliant with all treatment. This has provided minimal relief for the patient. I do not anticipate this course of treatment will alter the underlying etiology. The patient has been scheduled for lower extremity venous treatment inclusive of --- right great saphenous vein radiofrequency ablation. Risks, benefits, and complications of this procedure has been discussed in detail with the patient including but not limited to bleeding, infection, and the development of a DVT. The patient has demonstrated a clear understanding and has consented. We will schedule the patient as soon as possible. Thank you for allowing us to participate in this patient's care. If there are any questions or concerns please do not hesitate to contact us. Coding Level of Care Code Est Pt Level 4 (01740) Complex EM visit Add On G2211 Diagnoses Varicose veins of right lower extremity with inflammation I83.11
[2025-01-31 14:05] VITALS: BMI 51.8
--- OUTSIDE RECORDS SUMMARY | 2025-01-31 16:08 | XMS_ITS | Clinical Summary ---
Author Organization [facility] Address [address] [place] [address] Care Team Providers Care Water Pollution Control Inspector Name Role Phone Grant Levine MD Primary Care Provider [phone] Social History Tobacco Use Types Packs/Day Years [...] age to complete this topic Care Teams Water Pollution Control Inspector Relationship Specialty Start Date End Date Grant Levine MD [address] [place] [address] [place] [address] PCP - General Internal Medicine 03/06/20
== END 2025-01-31 14:41 | disposition home or self-care (01) ==
LOC: HO.HVS 14:01
PROVIDERS: Visit Provider Surgery Vascular Surgery
DX: I83.11 Varicose veins of right lower extremity with inflammation (principal)
CPT/HCPCS: 99214; G2211

== ENCOUNTER → 2025-01-31 14:00 | Outpatient (BNVA) | payer OTHER, SELFPAY | PROVIDERS: Visit Provider Surgery Vascular Surgery ==

== ENCOUNTER 2025-02-23 07:41 | Outpatient (REF) | payer OTHER, SELFPAY ==
--- OUTSIDE RECORDS SUMMARY | 2025-02-23 07:43 | XMS_ITS | Clinical Summary ---
Author Organization [facility] Address [address] [place] [address] Care Team Providers Care Unix Engineer Name Role Phone Grant Levine MD [...] Vaccine (2023-2 5 season) 2024 Influenza Vaccine (#1) 2025 HIB Vaccines Aged Out No longer [...] 5 Years) and At-Risk Patients (6 to 49 Years) Aged Out No longer eligible b ased on patient's age to complete this topic RSV Immunization Patients Un michelle 20 months Aged Out No longer eligible b ased on patient's age to complete this topic Varicella Vaccines Aged Out No longer eligible based on patient's age to complete this topic Care Teams Unix Engineer Relationship Specialty Start Date End Date Grant Levine MD [address] [place] [address] [place] [address] PCP - General Internal Medicine 03/06/20
== END 2025-02-23 07:42 | disposition home or self-care (01) ==
LOC: HO.MAMMO 07:41
DX: Z12.31 Encounter for screening mammogram for malignant neoplasm of breast (principal)
CPT/HCPCS: 77063; 77067

== ENCOUNTER → 2025-02-23 07:45 | Outpatient (BNV) | payer OTHER, SELFPAY | PROVIDERS: Visit Provider Radiology Body Imaging | DX: Z12.31 Encounter for screening mammogram for malignant neoplasm of breast (principal) | CPT/HCPCS: 77063; 77067 ==

== ENCOUNTER 2025-02-24 08:05 | Outpatient (AMB) | payer OTHER, SELFPAY ==
--- OUTSIDE RECORDS SUMMARY | 2025-02-24 08:07 | XMS_ITS | Clinical Summary ---
Author Organization [facility] Address [address] [place] [address] Care Team Providers Care News Director Name Role Phone Grant Levine MD Primary [...] age to complete this topic Care Teams News Director Relationship Specialty Start Date End Date Grant Levine MD [address] [place] [address] [place] [address] PCP - General Internal Medicine 03/06/20
--- NOTE | 2025-02-24 10:41 | A.OFFVIS_ITS ---
Intake Visit Reasons: R GSV RFA Accompanied by: Self / Same As Patient Allergies No Known Allergies Allergy (Verified 02/24/25 10:41) [facility] Medical History History of seizure Surgical History History of 2 sections Family History Son Autism Daughter Angélica-Danlos disease Social History Housing: House Alcohol intake: never Patient Tobacco Use Status: Never used Tobacco e-Cigarette/Vaping Use: Never Used Second Hand Smoke Exposure: No service: No Current occupational status: employed Current occupation: [employer] Cognitive needs: No Hearing needs: No Vision needs: Yes (Glasses) Office Procedures Vascular Office Procedure Details Details: Diagnosis: Varicose veins with inflammation of right leg Procedure: Endovenous radiofrequency ablation of the right great saphenous vein(s) of the lower extremity. Anesthesia: Local infiltration 5 cc, Tumescent 150 cc. Estimated Blood Loss: minimal Specimen: Varicose veins The patient was transferred to the procedure suite and the insufficient saphenous vein was mapped by ultrasound and diagrammed on the overlying skin. The depth and diameter of the vein(s) to be treated was documented. The varicose tributary veins and suitable access sites were identified and mapped as well. The patient was then positioned supine on the procedure table. The affected limb was prepped and draped in the usual sterile fashion. The RF catheter was placed on the sterile field, flushed and wiped down, prepared, and connected by a sterile cable. The patient was placed in supine position and local anesthesia was instilled in the skin overlying the access site. A skin incision was made overlying the identified and mapped great saphenous vein entry site. The vein was accessed using ultrasound guidance and the Seldinger technique, a guide wire was introduced through the needle, which was then exchanged over the guide wire for a 6F sheath, which was secured in place. The guide wire was removed and the sheath was flushed. The RF catheter was placed into the vein through the sheath and preferentially, imaging was used to place the catheter tip just inferior to the superficial epigastric vein to preserve normal physiological flow in that vein. Additionally, it was confirmed by ultrasound guidance that the catheter tip was also placed a minimum of 1.5cm distal to the saphenofemoral junction. After the RF catheter position was verified by ultrasound, tumescent anesthesia was infiltrated, under ultrasound guidance, precisely into the perivenous compartment along the entire length of vein from the entry site to the saphenofemoral junction until a halo of fluid was noted around the vein. The patient was then placed in supine position to further exsanguinate the superficial venous system. After RF catheter position was again confirmed with ultrasound imaging, and under direct external compression along the length of the heating element, RF energy was applied. The vein was segmentally ablated by heating a 8 cm segment and then indexing the catheter forward by 7.5 cm until the treatment length is completed. Device temperature was maintained at 120 plus or minus 5 degrees C with an initial power level of 40W dropping to below 20W for each treatment. Total vein length treated 8 cm Total cycles of RF 2. Repeat ultrasound of the saphenous vein was performed, confirming successful treatment. The catheter and sheath were withdrawn and hemostasis established with direct pressure. After assuring hemostasis, the skin incision over the saphenous vein was closed with a bandage and a compression wrap, and/ or graduated compression stocking was applied from the level of the foot to the most proximal level of the thigh. 65656 - Endovenous RF, 1st Vein All charges added?: Procedure code (CPT) selection complete Assessment & Plan Assessment & Plan (1) Varicose veins of right lower extremity with inflammation: Comment: 02/24/2025 - right great saphenous vein radiofrequency ablation Code(s): I83.11 - Varicose veins of right lower extremity with inflammation Category: Medical Plan: See op note Coding Level of Care Code Procedure Only Diagnoses Varicose veins of right lower extremity with inflammation I83.11 CPT Codes Details - Vascular 1: 18294 - Endovenous RF, 1st Vein ([id number])
== END 2025-02-24 09:04 | disposition home or self-care (01) ==
LOC: HO.HVS 08:05
PROVIDERS: Visit Provider Surgery Vascular Surgery
DX: I83.11 Varicose veins of right lower extremity with inflammation (principal)
CPT/HCPCS: 36475

== ENCOUNTER → 2025-02-24 08:05 | Outpatient (BNVA) | payer OTHER, SELFPAY | PROVIDERS: Visit Provider Surgery Vascular Surgery | DX: I83.11 Varicose veins of right lower extremity with inflammation (principal) | CPT/HCPCS: 36475; J2003; J2004 ==

== ENCOUNTER 2025-03-03 17:27 | Emergency (ER) | payer OTHER, SELFPAY ==
--- NOTE | ~2025-03-03 | US_ITS ---
CLINICAL HISTORY: Right thigh pain. Varicose vein ablation Venous duplex Doppler ultrasound greater saphenous vein with spectral waveform analysis: Comparison: 01/18/2025 Findings: The deep veins of the right leg were not evaluated. Thrombus is present in superficial greater saphenous vein and collaterals in the mid and distal thigh. Impression: There is thrombosis of the greater saphenous vein in the thigh as well as collateral superficial varicose veins. The deep veins were not evaluated. The patient was unable to complete the exam due to discomfort. Recommend to complete ultrasound of deep veins when patient is better able to tolerate procedure. This document has been electronically signed by: Deion Hilton MD on 03/03/2025 19:09:53
[2025-03-03 17:34] VITALS: BP 147/71; PULSE 91; RESP 20; TEMP 36.9; O2SAT 98; BMI 50.9
--- NOTE | 2025-03-03 17:45 | ED.GENADULT ---
HPI - General Adult General Chief complaint: Extremity Injury, Lower Stated complaint: Right leg pain;hot; previous blood clot removal Time Seen by Provider: 03/03/25 18:42 Source: patient Mode of arrival: ambulatory Limitations: no limitations History of Present Illness ED Provider: Anthony Obregon PA-C HPI narrative: 44-year-old female with medical history of seizures, obesity, asthma presents to the ED due to 5 days of persistent pain of the right leg after ablation procedure. Patient had ablation procedure with vascular [place] [facility] [place] on [place]24, patient handled procedure well. Patient states the doctor warned her about experiencing 48 hours of pain and sensitivity in the area after procedure, but pain has persisted. Patient reports on Thursday, she felt very fatigued, and felt as if she had a fever, but she has been taking ibuprofen and was unable to evaluate if she had a true fever or not. Patient states she called the office Thursday (03/01) and was told to take 600 mg ibuprofen, use heat pack, and elevate the leg for pain relief. Patient states pain has persisted called office today and was recommended to go to the ED for further evaluation of possible DVT. Patient reports she has had 2 days of shortness of breath going upstairs. Denies chest pain, fevers, chills, abdominal pain, nausea, vomiting Related Data Home Medications ?Medication ?Instructions ?Recorded ?Confirmed albuterol sulfate 90 mcg/actuation 1 inh inhalation QID 12/30/24 12/30/24 aerosol inhaler Previous Rx's ?Medication ?Instructions ?Recorded cholecalciferol (vitamin D3) 25 25 mcg PO DAILY #90 caps 12/02/24 mcg (1,000 unit) capsule Allergies Allergy/AdvReac Type Severity Reaction Status Date / Time No Known Allergies Allergy Verified 03/09/25 09:53 Review of Systems Review of Systems: CONST: Negative for fever, body aches and chills. HENT: Negative for neck pain/stiffness, headache, congestion, sore throat, swelling. EYES: Negative for discharge/pain or vision changes. RESP: Negative for cough/hemoptysis and shortness of breath. POS SOB on exertion CV: Negative chest pain, difficulty breathing, palpitations. ABD: Negative pain, nausea, vomiting. : Negative increase frequency, dysuria, blood in urine or stool. MUSC: Negative for muscle aches, edema. POS R leg pain after ablation procedure SKIN: Negative rash, lesions/sores. NEURO: Negative headache, dizziness, weakness. Yes all other systems are reviewed and are negative [facility] Past Medical History Medical History History of seizure Surgical History History of 2 sections Family History Family History Son Autism Daughter Angélica-Danlos disease Social History Social History Housing: House Alcohol intake: never Patient Tobacco Use Status: Never used Tobacco e-Cigarette/Vaping Use: Never Used Second Hand Smoke Exposure: No service: No Current occupational status: employed Current occupation: [employer] Cognitive needs: No Hearing needs: No Vision needs: Yes (Glasses) Physical Exam ED Vital Signs: Vital Signs - 24 hr 03/03/25 17:34 03/03/25 19:01 03/03/25 19:08 Temperature 98.5 F 98.3 F Pulse Rate 91 81 Respiratory Rate 20 18 Blood Pressure 147/71 H 105/56 L Pulse Oximetry 98 99 Oxygen Delivery Method Room Air Room Air BMI result Body Mass Index 50.9 GENERAL APPEARANCE: ?AxOx4, generally well-appearing, no acute distress. HEENT: ?NC, AT. MMM. EOMI, clear conjunctiva, oropharynx clear. NECK: ?Supple without lymphadenopathy.? No stiffness or restricted ROM. HEART:? Normal rate and regular rhythm, normal S1/S1, no m/r/g LUNGS:? CTAB, moving air well. No crackles or wheezes are heard. EXTREMITIES: R right leg with mild edema of the medial thigh, palpable cord, tenderness to palpation, without erythema, SILT intact see attached photos NEUROLOGICAL: ?Grossly nonfocal. Alert and oriented, moving all 4 extremities. Observed to ambulate with normal gait. Skin: ?Warm and dry without any rash. Course Course Course Narrative: RME: 43 year female presents to ED for right thigh pain. Patient is status post varicose vein ablation last week now having pain. Tender left thigh area. No redness or profuse swelling. No pus discharge and foul odor. Labs ultrasound ordered Medications Administered Discontinued Medications Generic Name Dose Route Start Last Admin Trade Name Ray PRN Reason Stop Dose Admin Acetaminophen 975 mg 03/03/25 21:05 03/03/25 21:27 Acetaminophen 325 Mg Tablet PO 03/03/25 21:06 975 mg ONCE ONE Administration Ibuprofen 600 mg 03/03/25 21:05 03/03/25 21:27 Ibuprofen 600 Mg Tablet PO 03/03/25 21:06 600 mg ONCE ONE Administration Procedures Procedure Narrative Procedure Narrative: EMERGENCY ULTRASOUND INTERPRETATION-Limited Point of Care Venous (DVT) [This study was ordered, performed, and interpreted by myself. The study reveals: Impression: NO EVIDENCE OF DVT. Positive presence of superficial venous thrombosis specifically proximal saphenous within 3 cm of the junction right at the level of the valve. Nonocclusive. [Indication: Laterality: RIGHT LEFT Common Femoral: -Full Compressibility: YES -Clot Seen: NO Superficial Femoral: -Full Compressibility: YES -Clot Seen: NO Popliteal: -Full Compressibility: YES -Clot Seen: NO Other: Proximal saphenous thrombosis nonocclusive at the level of the valve within 3 cm of the saphenofemoral junction Performed by: Jose Avila MD Images were stored CPT: 11314] Medical Decision Making Medical Decision Making MDM Narrative: 44-year-old female with medical history of seizures, obesity, presents to the ED due to 5 days of persistent pain of the right leg after ablation procedure. Patient had ablation procedure with vascular surgery [place] [facility] [place] on 02/24, patient handled procedure well. Patient states the doctor warned her about experiencing 48 hours of pain and sensitivity in the area after procedure, but pain has persisted. Patient reports on Thursday, she felt very fatigued, and felt as if she had a fever, but she has been taking ibuprofen and was unable to evaluate if she had a true fever or not. Patient states she called the office Thursday (03/01) and was told to take 600 mg ibuprofen, use heat pack, and elevate the leg for pain relief. Patient states pain has persisted called office today and was recommended to go to the ED for further evaluation of possible DVT. Patient reports she has had 2 days of shortness of breath going upstairs. Vital signs stable, blood pressure 105/56, pulse rate 81, 18 breaths per minute, patient afebrile 98.3? oral temp, O2 saturation is 99% on room air.- patient without tachypnea, not tachycardic, not hypoxic, I do not believe the patient has shortness of breath is due to pulmonary embolism. I believe patient is experiencing shortness of breath on exertion due to patient being obese, deconditioned status with recent ablation procedure to right leg, patient in pain. Course 20:23- venous duplex ultrasound visualized thrombus in the superficial greater saphenous vein and collaterals in the mid and distal thigh, however this is limited study as patient was not able to tolerate procedure. I did a bedside US with my attending Dr. Lowe where we visualized thrombus of the greater saphenous vein right at the saphenofemoral junction. I reached out to her vascular surgeon Dr. Carrasquillo about the findings and recommendations about how to proceed to treat this patient. Dr. Carrasquillo Educated me that the patient has endothermal heat induced thrombosis (EHIT), and her condition is considered EHIT to class 1 with the thrombus at the SFJ but does not extend into the deep vein only requires monitoring and does not require anticoagulation. thrombus not per the newest guidelines of EHIT no anticoagulation is needed, and also recommended against treatment with Keflex as this is a simple phlebitis and can be treated with NSAIDs, warm compress, and elevation. This information was shared with the patient, she is in understanding, she will call the office on Thursday to see if she is able to follow up any sooner than 03/09. Patient is understanding, agrees with the plan. Strict return precautions outlined with patient Differential Diagnosis Differential Diagnoses: The differential diagnosis associated with the presentation includes Cellulitis DVT Phlebitis Endothermal heat induced thrombosis Admission/Observation Consideration of admission/observation: Escalation of care including admission/observation considered Lab Data MDM Lab Attestation statement: I reviewed the patient's lab results. 03/03/25 18:32 03/03/25 18:32 Labs: Lab Results 03/03/25 Range/Units 18:32 WBC 10.6 (4.8-10.8) X10*3/uL RBC 4.49 (4.20-5.50) X10*6/uL Hgb 11.0 L (12.0-16.0) g/dl Hct 34.1 L (37.0-47.0) % MCV 75.9 L (80.0-98.0) fL MCH 24.5 L (27.0-33.0) pg MCHC 32.3 (31.0-35.0) g/dl RDW 16.1 H (11.0-16.0) % Plt Count 244 (160-400) X10*3/uL MPV 10.4 (9.4-12.3) fL Immature Gran % (Auto) 0.2 (0.0-0.4) % Neut % (Auto) 73.4 H (45-73) % Lymph % (Auto) 20.5 (20-40) % [place] % (Auto) 4.1 (2-11) % Eos % (Auto) 1.7 (0-4) % Baso % (Auto) 0.1 (0-2) % Lymph # (Auto) 2.2 (1.2-4.9) X10*3/uL [place] # (Auto) 0.4 (0.1-1.2) X10*3/uL Eos # (Auto) 0.2 (0.0-0.4) X10*3/uL Baso # (Auto) 0.0 (0.0-0.2) X10*3/uL Abs Immat Gran (auto) 0.02 (0.00-0.03) X10*3/uL Absolute Neuts (auto) 7.8 (2.0-8.3) x10*3/uL Absolute Nucleated RBC 0.000 (0.0-0.012) X10*3/uL Nucleated RBC % (auto) 0.0 (0.0-0.2) /100WBC PT 12.9 H (10.9-12.4) SEC INR 1.1 (0.9-1.1) APTT 31.2 (26.0-36.8) SEC Sodium 139 (135-145) mmol/L Potassium 3.7 (3.3-5.1) mmol/L Chloride 106 (96-108) mmol/L Carbon Dioxide 25 (22-29) mmol/L Anion Gap 12 (12-20) BUN 10 (9-16) mg/dL Creatinine 0.63 (0.5-1.4) mg/dL Estim Creat Clear Calc 174.3 Estimated GFR > 60 Random Glucose 119 H (60-115) mg/dL Calcium 8.8 (8.4-10.2) mg/dL Total Bilirubin 0.4 (0.0-1.0) mg/dL AST 20 (5-31) U/L ALT 28 (0-31) U/L Alkaline Phosphatase 66 (39-117) U/L Total Protein 7.7 (6.5-8.0) g/dL Albumin 3.9 (3.5-5.0) g/dL Independent Interpretation I performed an independent interpretation of an: Ultrasound Interpretation: I independently interpreted the venous duplex ultrasound which revealed thrombosis of the greater saphenous vein and agree with the radiologist's interpretation Radiology Impression Discussion of test interpretation with radiology: I have reviewed the radiologist's reading. Radiologist Impression: Findings: The deep veins of the right leg were not evaluated. Thrombus is present in superficial greater saphenous vein and collaterals in the mid and distal thigh. Impression: There is thrombosis of the greater saphenous vein in the thigh as well as collateral superficial varicose veins. The deep veins were not evaluated. The patient was unable to complete the exam due to discomfort. Recommend to complete ultrasound of deep veins when patient is better able to tolerate procedure. This document has been electronically signed by: Deion Hilton MD on 03/03/2025 19:09:53 Dictated By: Deion Hilton MD Signed By: <Electronically signed by Deion Hilton MD in OV> 03/03/251910 Independent Historian Clinical information obtained from an independent historian. History obtained from or confirmed by: Spouse ( at bedside corroborating history) External Record Review External record reviewed: Inpatient record, Office record and Outpatient record Prescription Management I considered prescription management with: Other (Apixaban, Keflex) I considered anticoagulating the patient with the apixaban, and starting her on a course of Keflex for possible cellulitis. I reached out to her vascular surgeon Dr. Carrasquillo who educated me on the patient's condition, which is an endothermal heat induced thrombosis (EHIT) with guidelines stating this is a benign condition and does not need anticoagulation. Chronic Conditions Patient?s care impacted by: Other Discharge Plan Discharge Clinical Impression: Phlebitis Patient Disposition: Home, Self-Care Additional Instructions: You were evaluated in the ED today due to right leg pain after ablation procedure done 1 week ago with [facility] [place] and surgeon Dr. Carrasquillo. Your lab work was unconcerning, and did not show evidence of infection. The ultrasound done showed a clot of the greater saphenous vein, this was also visualized during bedside ultrasound. I reached out to your surgeon Dr. Carrasquillo who is aware of your condition, and recommended to continue 600 mg ibuprofen, warm compresses, and leg elevation to manage her condition until your follow up appointment. To manage your pain, you can take 600 mg of ibuprofen and 500 mg of Tylenol every 6 hours to manage pain. Do warm compresses and elevation of the leg above heart level several times throughout the day. You should stay active with gentle motion, gentle stretching, as being inactive can make the pain worse. Please call your vascular surgeon office Thursday to see if you can get an appointment sooner than 03/09. Please return to the emergency department if you experience fevers over 100.4?, increased pain of the right leg, increased redness of the right leg, inability to bear weight on the right leg, chest pain, worsening shortness of breath, or any other new/concerning/worsening symptoms Prescriptions: No Action cholecalciferol (vitamin D3) 25 mcg (1,000 unit) capsule 25 mcg PO DAILY Qty: 90 3RF albuterol sulfate 90 mcg/actuation HFA aerosol inhaler 1 inh inhalation QID Discharge Date/Time: 03/03/25 21:40 Print Language: Italian
[2025-03-03 18:48] LABS: MANUAL DIFF FLAG NO
[2025-03-03 18:49] LABS: Hematocrit 34.1 % (37.0-47.0); Hemoglobin 11.0 g/dl (12.0-16.0); Imm Gran Abs Auto 0.02 X10*3/uL (0.00-0.03); Imm Gran Pct Auto 0.2 % (0.0-0.4); Lymphocytes Absolute Auto 2.2 X10*3/uL (1.2-4.9); Mean Corpuscular HGB Conc 32.3 g/dl (31.0-35.0); Mean Corpuscular Hemoglobin 24.5 pg (27.0-33.0); Mean Corpuscular Volume 75.9 fL (80.0-98.0); NRBC Abs Auto 0.000 X10*3/uL (0.0-0.012); NRBC Pct Auto 0.0 /100WBC (0.0-0.2); Platelet Count 244 X10*3/uL (160-400); Red Blood Count 4.49 X10*6/uL (4.20-5.50); White Blood Count 10.6 X10*3/uL (4.8-10.8)
[2025-03-03 18:59] LABS: INTERNATIONAL NORM RATIO 1.1 (0.9-1.1); Prothrombin Time 12.9 SEC (10.9-12.4)
[2025-03-03 19:01] VITALS: BP 105/56; PULSE 81; RESP 18; O2SAT 99
[2025-03-03 19:02] LABS: Partial Thromboplastin Time 31.2 SEC (26.0-36.8)
[2025-03-03 19:06] LABS: Alanine Aminotransferase 28 U/L (0-31); Albumin Level 3.9 g/dL (3.5-5.0); Alkaline Phosphatase 66 U/L (39-117); Anion Gap 12 (12-20); Aspartate Amino Transferase 20 U/L (5-31); Blood Urea Nitrogen 10 mg/dL (9-16); Calcium 8.8 mg/dL (8.4-10.2); Carbon Dioxide 25 mmol/L (22-29); Chloride 106 mmol/L (96-108); Creatinine Clr Calc Pharmacy 174.3; Estimated Glomerular Filt Rate > 60; Potassium 3.7 mmol/L (3.3-5.1); Sodium 139 mmol/L (135-145); Total Protein 7.7 g/dL (6.5-8.0)
--- OUTSIDE RECORDS SUMMARY | 2025-03-03 19:06 | XMS_ITS | Clinical Summary ---
Author Organization [facility] Address [address] [place] [address] Care Team Providers Care Cotton Program Technician Name Role Phone Grant Levine MD Primary [...] SCREENING/FOLLOWUP 08/17/2024 SOCIAL NEEDS SCREENING 08/17/2024 INFLUENZA (#1) 2025 PNEUMOCOCCAL VACCINE FOR HIG H RISK PATIENTS (#1) 2046 Care Teams Cotton Program Technician Relationship Specialty Start Date End Date Grant Levine MD PCP - General Internal Medicine 03/06/20
--- OUTSIDE RECORDS SUMMARY | 2025-03-03 19:06 | XMS_ITS | Clinical Summary ---
Author Organization [facility] Address [address] [place] [address] Care Team Providers Care Adolescent Specialist Name Role Phone Grant Levine MD Primary [...] 2002 COVID-19 Vaccine (2023-2 5 season) 2024 Depression Screening 08/17/2024 Influenza Vaccine (#1) 2025 HIB Vaccines Aged [...] age to complete this topic Care Teams Adolescent Specialist Relationship Specialty Start Date End Date Grant Levine MD [address] [place] [address] DANNY VALLADARES [id number] PCP - General Internal Medicine 03/06/20
[2025-03-03 19:08] VITALS: TEMP 36.8
--- NOTE | 2025-03-03 20:05 | MHC.EDTECH ---
Assisted patient with ambulation to the bathroom, Patient's gait is slow and steady.
--- NOTE | 2025-03-03 20:28 | PC.NURSE ---
REILLY Cruz at bedside (using staff auditor medical claims) discussing phone discussion with Dr. Carrasquillo regarding visualized clot, findings, and recommendations.
--- NOTE | 2025-03-03 20:55 | PC.NURSE ---
Patient is requesting Ibuprofen. REILLY Cruz notified via userADgents. Awaiting response. Plan to discharge home.
[2025-03-03 21:32] VITALS: BP 125/65; PULSE 77; RESP 20; TEMP 36.8; O2SAT 97
== END 2025-03-03 21:40 | disposition home or self-care (01) ==
PROVIDERS: Physician Assistant; Emergency Provider Emergency Medicine
DX: I80.01 Phlebitis and thrombophlebitis of superficial vessels of right lower extremity (principal); M79.604 Pain in right leg; R06.02 Shortness of breath; Z86.718 Personal history of other venous thrombosis and embolism; E66.01 Morbid (severe) obesity due to excess calories; Z68.43 Body mass index [BMI] 50.0-59.9, adult
CPT/HCPCS: 36415; 80053; 85025; 85610; 85730; 93971; 99283; 99284

== ENCOUNTER → 2025-03-03 17:44 | Outpatient (BNV) | payer OTHER, SELFPAY | PROVIDERS: Emergency Provider Emergency Medicine; Visit Provider Radiology Diagnostic Radiology | DX: I82.811 Embolism and thrombosis of superficial veins of right lower extremity (principal) | CPT/HCPCS: 93971 ==

== ENCOUNTER 2025-03-09 09:46 | Outpatient (AMB) | payer OTHER, SELFPAY ==
--- NOTE | 2025-03-09 09:51 | MHC.OFFVIS ---
Intake Visit Reasons: 2 week follow up s/p R GSV RFA 01/25/25 Intake Note: Patient presents for right GSV follow up. States she has pain and swelling on her thigh. She went to the emergency room on March 03 and was told she had a clot? She has been taking ibuprofen for the pain. States she has to sit down and cannot walk much due to the leg pain. Accompanied by: Spouse Allergies No Known Allergies Allergy (Verified 03/09/25 09:53) HPI HPI 2 week follow up s/p R GSV RFA 01/25/25: Details: Complex 44-year-old female presents for follow-up status post right great saphenous vein radiofrequency ablation. She reports that postprocedure had extreme pain especially in the thigh and groin area. Subsequently she presented to the emergency room. At that time they did a limited ultrasound as the patient was unable to tolerate it secondary to pain. She now presents for routine postprocedure follow-up. She does report progressive improvement over time. [facility] Medical History History of seizure Surgical History History of 2 sections Family History Son Autism Daughter Angélica-Danlos disease Social History Housing: House Alcohol intake: never Patient Tobacco Use Status: Never used Tobacco e-Cigarette/Vaping Use: Never Used Second Hand Smoke Exposure: No service: No Current occupational status: employed Current occupation: [employer] Cognitive needs: No Hearing needs: No Vision needs: Yes (Glasses) Review of Systems Const All systems reviewed & are unremarkable except as noted in HPI and below Reports no additional complaints ENT Reports Normal hearing present Card Denies chest pain, Denies chest pain at rest, Denies chest pain with activity and Denies pedal edema Resp Denies cough GI Denies abdominal pain Musc Denies abnormal gait, Denies muscle cramps and Denies radiating pain into limb Skin/Breast Denies skin ulcer and Denies wounds Neuro Reports Normal hearing present and Denies abnormal gait Psych Reports no additional complaints Physical Exam Const General: cooperative, healthy appearing and comfortable Orientation/consciousness: oriented to person, oriented to place and oriented to time HEENT Head: Yes normal to inspection Neck Neck: Yes normal visual inspection Carotids: no bruits Chest Chest palpation & inspection: normal inspection of the chest Resp Effort & Inspection: normal respiratory effort and able to speak in complete sentences Auscultation: clear to auscultation bilaterally, no crackles, no rales, no rhonchi and no wheezes Cardio Rate: regular rate Rhythm: regular rhythm Heart sounds: S1 normal heart sound present and S2 normal heart sound present Bruits: no carotid bruits Peripheral pulses: Peripheral pulses 2+ throughout GI Inspection: Yes normal to inspection Skin Wounds: no wounds Hair: normal Neuro General: oriented to person, oriented to place and oriented to time Cranial nerves: Yes CN's II-XII intact bilaterally and Yes Normal hearing present Cognition (Neuro): normal cognition Motor exam (neuro): 5/5 motor strength present throughout Extrem Other: venous exam: +2 edema General: No clubbing, No cyanosis and Yes edema Psych Appearance: grossly normal Mental Status: mental status grossly normal Speech and movement: Normal speech and movement present Results Reviewed Results Reviewed: Emergency room ultrasound dated 03/03/2025 was negative for DVT in the common femoral Assessment & Plan Assessment & Plan (1) Varicose veins of right lower extremity with inflammation: Comment: 02/24/2025 - right great saphenous vein radiofrequency ablation Code(s): I83.11 - Varicose veins of right lower extremity with inflammation Category: Medical Plan: The patient has significant postprocedure phlebitis.. I have discussed with the patient use of warm compresses and NSAIDS if tolerated for pain discomfort. In addition, I have discussed continued conservative measures including use of compression, leg elevation, and exercise. The patient was also given an information sheet regarding appropriate use of compression stockings and future purchases. Patient will follow up with us in approximately 3 weeks to ensure that her leg continues to improve. Thank you for allowing us to assist in her care. Coding Level of Care Code Est Pt Level 4 (02810) Diagnoses Varicose veins of right lower extremity with inflammation I83.11
--- OUTSIDE RECORDS SUMMARY | 2025-03-09 10:25 | XMS_ITS ---
Author Name [facility] Organization Unknown Care Team Organization Name Specialty Phone Email Start Date End Da te [facility] Damir Norman DO Primary Care 11/18/202203/17 [facility] NULL Primary Care 06/24/2022 04/04/2024
--- OUTSIDE RECORDS SUMMARY | 2025-03-09 10:25 | XMS_ITS | Clinical Summary ---
Author Organization [facility] Address [address] [place] [address] Care Team Providers Care Anchor Operator Name Role Phone Grant Levine MD Primary [...] age to complete this topic Care Teams Anchor Operator Relationship Specialty Start Date End Date Gratn Levine MD [address] [place] [address] DANNY VALLADARES [id number] PCP - General Internal Medicine 03/06/20
== END 2025-03-09 10:25 | disposition home or self-care (01) ==
LOC: HO.HVS 09:47
PROVIDERS: Visit Provider Surgery Vascular Surgery
DX: I83.11 Varicose veins of right lower extremity with inflammation (principal)
CPT/HCPCS: 99214

== ENCOUNTER 2025-03-15 13:53 | Outpatient (RCR) | payer OTHER, SELFPAY ==
--- NOTE | 2025-02-08 14:13 | MHC.OT.EP ---
[address] [phone] Occupational Therapy Plan of Care Patient Name: Dinah Combs Date of Evaluation: 02/08/25 Diagnosis: Left elbow pain Pain Location: Left elbow (medial) 5/10 Aggravating Factors: Forceful grasp, lifting/carrying, repetitive use Alleviating Factors: None reported Assessment: Pt is a 44 y/o female referred to OT with left elbow pain. Patient reports continued left elbow pain that has been ongoing for several months. She does have a history of multiple fractures of the left elbow from childhood. Pt reports she believes the pain exacerbated from pushing her adult daughter in a wheelchair for several months. QUick DASH score is 22.7% and pt. demonstrates a (+) golfers elbow test; pain and symptoms consistent with medial epicondylitis. Both of her children have history of EDH, pt. does not have a personal history although she does present with hypermobile joints and would benefit from stabilization exercises as well. Skilled OT is recommended to address noted barriers and reduce pain. Frequency and Duration: The patient will be seen 2x/wk for 6 weeks Short Term Goals: Decrease L elbow pain <3/10 with activity IND with joint protection and stabilization exercises Improve left gross grasp by 5# to increase ease with ADL and work tasks Snf Goals: Pain free with ADL's and work tasks IND with stabilization exercises and progression of HEP Gross grasp >45# Quick DASH <15% to increase ease with functional tasks Treatment Plan: Therapeutic Exercise Therapeutic Activity Home Exercise Program Patient Education Ultrasound MHP Cold Packs Joint Mobilization Soft Tissue Mobilization Kinesiotaping Electronically Signed By: Sabina Allred MS OTR/L Please Sign and return to therapist. Thank you once again for your referral.
== END 2025-03-15 14:23 | disposition home or self-care (01) ==
LOC: HO.OTS 13:53
DX: M25.522 Pain in left elbow (principal)
CPT/HCPCS: 97110; 97165

== ENCOUNTER 2025-03-20 09:08 | Outpatient (AMB) | payer OTHER, SELFPAY ==
--- NOTE | 2025-03-20 09:33 | A.OFFVIS_ITS ---
VS Expanded 03/20/25 09:34 Height 5 ft 7 in Weight 321 lb 13.998 oz BMI 50.4 Intake Visit Reasons: Obesity Allergies No Known Allergies Allergy (Verified 03/09/25 09:53) Nutrition Presentation Details: Pt presents for MNT f/u for morbid obesity Pt reports working on reducing on empty calorie foods and making modifications in types of starches consumed Has a daughter dx with Angélica Danlos syndrome Fluids: 80 oz of water per day Having 3 meals/day B: scrambled eggs , whole wheat toast lunch: rice/chicken - no beans dinner: pasta with ground beef or fried plantains with beef or tacos with beef/cheese fruits: 2/day BS Monitoring Most Recent Diabetes Results: Creatinine, (0.5-1.4) 0.63 mg/dL 03/03/25 BUN, (9-16) 10 mg/dL 03/03/25 Sodium, (135-145) 139 mmol/L 03/03/25 Potassium, (3.3-5.1) 3.7 mmol/L 03/03/25 Chloride, (96-108) 106 mmol/L 03/03/25 Carbon Dioxide, (22-29) 25 mmol/L 03/03/25 Calcium, (8.4-10.2) 8.8 mg/dL 03/03/25 AST, (5-31) 20 U/L 03/03/25 ALT, (0-31) 28 U/L 03/03/25 Total Protein, (6.5-8.0) 7.7 g/dL 03/03/25 Albumin, (3.5-5.0) 3.9 g/dL 03/03/25 [facility] Medical History History of seizure Surgical History History of 2 sections Family History Son Autism Daughter Angélica-Danlos disease Social History Housing: House Alcohol intake: never Patient Tobacco Use Status: Never used Tobacco e-Cigarette/Vaping Use: Never Used Second Hand Smoke Exposure: No service: No Current occupational status: employed Current occupation: [employer] Cognitive needs: No Hearing needs: No Vision needs: Yes (Glasses) Assessment & Plan Assessment & Plan (1) Morbid obesity with BMI of 50.0-59.9, adult: Code(s): E66.01 - Morbid (severe) obesity due to excess calories; Z68.43 - Body mass index [BMI] 50.0-59.9, adult Category: Medical Plan: Wt: 148 Kg ( 02/08 ), 146 kg (04/10) Est kcal needs as per MSJ: 2600 (40% carb, 30% protein/fat) Est fluid needs as per 25-30 ml/d: 3700 - 4400 Est prot per day as per 1 g/kg bw: 145 Recommend fiber intake : 8-10 g per day and gradually increase to 25-28 g per day for women and 35-38 g for men or as tolerated Recommend sodium intake per day : less than 2300 mg Educated patient on: ( R = reviewed V = verbalizes understanding N/R = needs review N/A = not applicable * Food sources of carbohydrate, adequate serving sizes and its role in various health conditions: R * Differences between complex carbohydrates a simple carbohydrates, role of fiber in diet: R * Lean protein sources of foods: R * Differences between types of fats and role in diet (mono on saturated fat fatty acids, saturated fatty acids, trans fats): R , low fat basic concepts * Food sources of sodium in salt and healthy modifications for heart health in kidney health: R V R/V * Vitamins and minerals: R V N/R * Healthy plate method concept: R * Physical activity: Benefits a precaution: R V N/R * Patient Instructions: Continue working on modifying amount of fat consumed /when cooking ( reduce butter/rodriguez) Continue working on having 3 meals per day as a routine Include lean protein foods (beans, lentils, lean beef, poultry in each meal) Coding Level of Care Code Nutr Indiv Subseq (46952) Diagnoses Morbid obesity with BMI of 50.0-59.9, adult E66.01; Z68.43 Time Spent (min) 30
--- OUTSIDE RECORDS SUMMARY | 2025-03-20 09:33 | XMS_ITS | Clinical Summary ---
Author Organization [facility] Address [address] [place] [address] Care Team Providers Care Family Practice Physician Assistant Name Role Phone Grant Levine MD [...] age to complete this topic Care Teams Family Practice Physician Assistant Relationship Specialty Start Date End Date Grant Levine MD [address] [place] [address] DANNY VALLADARES [id number] PCP - General Internal Medicine 03/06/20
--- OUTSIDE RECORDS SUMMARY | 2025-03-20 09:33 | XMS_ITS | Clinical Summary ---
Author Organization [facility] Address [address] [place] [address] Care Team Providers Care Project Admin Name Role Phone Grant Levine MD Primary [...] H RISK PATIENTS (#1) 2046 Care Teams Project Admin Relationship Specialty Start Date End Date Grant Levine MD PCP - General Internal Medicine 03/06/20
[2025-03-20 09:34] VITALS: BMI 50.4
== END 2025-03-20 10:11 | disposition home or self-care (01) ==
LOC: HO.ENCR 09:09
PROVIDERS: Visit Provider Dietitian, Registered
DX: E66.01 Morbid (severe) obesity due to excess calories (principal); Z68.43 Body mass index [BMI] 50.0-59.9, adult

== ENCOUNTER → 2025-03-20 09:08 | Outpatient (BNVA) | payer OTHER, SELFPAY | PROVIDERS: Visit Provider Dietitian, Registered | DX: E66.01 Morbid (severe) obesity due to excess calories (principal); Z68.43 Body mass index [BMI] 50.0-59.9, adult | CPT/HCPCS: 97803 ==

== ENCOUNTER 2025-03-30 09:03 | Outpatient (AMB) | payer OTHER, SELFPAY ==
--- NOTE | 2025-03-30 09:04 | A.OFFVIS_ITS ---
Intake Visit Reasons: 3 week follow up R GSV RFA 01/25/25 Intake Note: Patient presents for follow up right gsv rfa. She still has bruises on her thigh, states it feels swollen and inflammed. Accompanied by: Self / Same As Patient Allergies No Known Allergies Allergy (Verified 03/30/25 09:07) [facility] 3 week follow up R GSV RFA 01/25/25: Details: Very pleasant 44-year-old female presents for follow-up after right great saphenous vein radiofrequency ablation. She had done relatively well postprocedure but developed a large phlebitic vein in the right medial thigh. It has been a source of pain and discomfort for her. She actually tried ibuprofen and Aleve post operative with minimal relief. It also created evidence of tachycardia for her. She stopped that subsequently. She has been using warm compresses and now presents for follow-up. [facility] Medical History History of seizure Surgical History History of 2 sections Family History Son Autism Daughter Angélica-Danlos disease Social History Housing: House Alcohol intake: never Patient Tobacco Use Status: Never used Tobacco e-Cigarette/Vaping Use: Never Used Second Hand Smoke Exposure: No service: No Current occupational status: employed Current occupation: [employer] Cognitive needs: No Hearing needs: No Vision needs: Yes (Glasses) Review of Systems Const Reports as per HPI ENT Reports no additional complaints Card Denies chest pain, Denies chest pain at rest and Denies chest pain with activity Resp Denies chest congestion and Denies cough GI Reports no additional complaints Musc Details: pain over varicosities, aching of lower extremities, swelling, cramping, heaviness and tiredness, itching Denies abnormal gait Skin/Breast Reports pruritus and Denies wounds Neuro Reports no additional complaints and Denies abnormal gait Psych Denies no additional complaints Physical Exam Const General: cooperative, healthy appearing and comfortable Orientation/consciousness: oriented to person, oriented to place and oriented to time Neck Carotids: no bruits Chest Chest palpation & inspection: normal inspection of the chest and normal palpation of entire chest wall Resp Effort & Inspection: normal respiratory effort and able to speak in complete sentences Cardio Rate: regular rate Heart sounds: S1 normal heart sound present and S2 normal heart sound present Peripheral pulses: Peripheral pulses 2+ throughout GI Inspection: Yes normal to inspection Skin Other: +2 edema, large rope-like varicosities greater than 4 mm large phlebitic vein right medial thigh CEAP Classification C4 - skin color changes Ep - Etiology Primary As - superficial veins P - reflux General skin exam: dry skin Neuro General: oriented to person, oriented to place and oriented to time Extrem Right lower extremity: full ROM, normal capillary refill and edema Left lower extremity: full ROM, normal capillary refill and edema Psych Mental Status: mental status grossly normal Assessment & Plan Assessment & Plan (1) Varicose veins of right lower extremity with inflammation: Comment: 02/24/2025 - right great saphenous vein radiofrequency ablation Code(s): I83.11 - Varicose veins of right lower extremity with inflammation Category: Medical Plan: Unfortunately she has developed postprocedure phlebitis. It seems to be a little bit more significant. We discussed the use of warm compresses and nonsteroidals. She will follow up with us in approximately 3 weeks' time. If no significant improvement will recommend microphlebectomy at that point to remove that vein. Thank you for allowing us to assist in her care. Medications: New naproxen 500 mg PO BID 20 tabs 0RF Coding Level of Care Code Est Pt Level 4 (20125) Diagnoses Varicose veins of right lower extremity with inflammation I83.11
--- OUTSIDE RECORDS SUMMARY | 2025-03-30 09:21 | XMS_ITS | Clinical Summary ---
[facility] Organization [facility] [address] [place] [address] Care Team Providers Care Sound System Installer Name Role Phone Grant Levine MD Primary [...] age to complete this topic Care Teams Sound System Installer Relationship Specialty Start Date End Date Grant Levine MD [address] [place] [address] DANNY VALLADARES [id number] PCP - General Internal Medicine 03/06/20
== END 2025-03-30 09:25 | disposition home or self-care (01) ==
PROVIDERS: Visit Provider Surgery Vascular Surgery
DX: I83.11 Varicose veins of right lower extremity with inflammation (principal)
CPT/HCPCS: 99214

== ENCOUNTER 2025-04-03 08:33 | Outpatient (AMB) | payer OTHER, SELFPAY ==
--- NOTE | 2025-04-03 08:57 | A.OFFPC_ITS ---
Vital Signs 04/03/25 08:58 Height 5 ft 7 in Weight 319 lb 2 oz BMI 50.0 BP 124/84 Blood Pressure Location Lt brachial Position Sitting Pulse 98 Pulse Source Pulse Oximeter Pulse Oximetry (%) 99 Oxygen Delivery Method Room Air Intake Visit Reasons: f/u leg swelling Roller Hand Required: No Accompanied by: Self / Same As Patient Allergies No Known Allergies Allergy (Verified 04/03/25 09:11) Medication List - Last Reconciled 04/03/25 by Ana Maria Espinoza PA-C albuterol sulfate 90 mcg/actuation 1 inh inhalation QID cholecalciferol (vitamin D3) 25 mcg PO DAILY naproxen 500 mg PO BID Tobacco use date assessed: 04/03/25 Dental Screening Dental Screen Date: 04/03/25 Did you have a dental visit in the last 12 months?: No Did you have a dental problem in the last 6 months where you did not have access to dental care?: No Was dental information given to patient?: No HPI f/u leg swelling HPI Details 44-year-old female with past medical his tory of asthma, obesity last seen 12/2024 coming in for follow up. In review of the notes, patient was seen by vascular surgery 03/30/2025 s/p radiofrequency ablation of the great saphenous vein developed large phlebitic vein in the right medial thigh. Advised to continue with warm compress and NSAIDs and consider microphlebectomy in 3 weeks if symptoms have not resolved. Presenting with phlebitis and associated symptoms. Phlebitis developed following a radiofrequency ablation procedure. The patient reports significant pain and was prescribed naproxen and ibuprofen, which caused adverse effects including chest pain and increased blood pressure. Chest pain has been persistent for several weeks, described as pressure and heaviness, exacerbated by NSAID use. The patient has a history of hypertension, with recent readings higher than her baseline. [facility] Medical History History of seizure Surgical History History of 2 sections Family History Son Autism Daughter Angélica-Danlos disease Social History Housing: House Alcohol intake: never Patient Tobacco Use Status: Never used Tobacco e-Cigarette/Vaping Use: Never Used Second Hand Smoke Exposure: No service: No Current occupational status: employed Current occupation: [employer] Cognitive needs: No Hearing needs: No Vision needs: Yes (Glasses) Questionnaire Thrive Questionnaire Date Thrive assessed: 04/03/25 I am a: Patient What is your living situation today?: I have a steady place to live Within the past 12 months, did the food you bought not last and you didn't have the money to get more?: Sometimes True Within the past 12 months, did you worry whether your food would run out before you got money to buy more?: Sometimes True Do you have trouble paying for medicines?: No Do you have trouble getting transportation to medical appointments?: No Do you have trouble paying your heating and electricity bill?: Yes Do you have trouble taking care of your child, family member or friend?: No Do you have trouble with day-to-day activities such as bathing, preparing meals, shopping, managing finances, etc.?: No Are you currently unemployed and looking for a job?: No Are you interested in more education?: Yes Please select the resources that you would like help with: None Currently or been in a relationship where the following occur: No concerns reported THRIVE Score: 3 RADHA-7 AMB Questionnaire RADHA-7 Date RADHA - 7 assessed: 04/03/25 Source: Developed by Drs. John Barreto, Gabby Gavin, Cliff Marcelo and colleagues, with an educational dave from [email or web address]. Review of Systems Const Denies body aches, Denies chills, Denies fever(s), Denies headache(s) and Denies poor appetite Eyes Reports no additional complaints ENT Denies dizziness and Denies headache(s) Card Reports as per HPI, Denies chest pain, Denies edema, Denies irregular heart rhythm, Denies lightheadedness and Denies dyspnea Resp Denies dyspnea GI Denies diarrhea, Denies nausea and Denies vomiting Reports no additional complaints Musc Denies abnormal gait Skin/Breast Reports system reviewed and no additional complaints, except as documented Neuro Denies abnormal gait, Denies dizziness and Denies headache(s) Psych Reports no additional complaints Physical exam (Primary Care) Vital Signs: Last Vital Signs Pulse 98 04/03/25 08:58 BP 124/84 04/03/25 08:58 Pulse Ox 99 04/03/25 08:58 Oxygen Delivery Method Room Air 04/03/25 08:58 BMI result Body Mass Index 50.0 Tobacco/Smoking Status: Tobacco use Status Tobacco use date assessed 04/03/25 04/03/25 09:03 Patient Tobacco Use Status Never used Tobacco 04/03/25 09:03 e-Cigarette/Vaping Use Never Used 04/03/25 09:03 Thrive Assessment: Date of Thrive Assessment Date Thrive assessed 04/03/25 04/03/25 09:03 Currently or been in a relationship where the following occur: No concerns reported Const General: cooperative, healthy appearing, comfortable and no acute distress Orientation/consciousness: patient oriented x3 HENMT Head: Yes normocephalic Ears: hearing grossly normal bilaterally General nose exam: Normal external nose present Eyes General: appearance normal, both eyes and all related structures Conjunctivae: conjunctivae normal Neck Neck: Yes full ROM and Yes no lymphadenopathy Resp Effort & Inspection: normal respiratory effort Auscultation: clear to auscultation bilaterally, no crackles, no rales, no rhonchi and no wheezes Cardio Rate: regular rate Rhythm: regular rhythm Skin General skin exam: no rashes or lesions noted Neuro General: patient oriented x3 Gait exam (Neuro): Normal gait present Extrem General: Yes normal to inspection, Yes full ROM and No edema Psych Affect: normal affect Attitude: cooperative Insight: Good insight present (Psych) Judgement: Good judgement present (Psych) Office Procedures EKG Details: EKG reviewed by myself and my attending revealing normal sinus rhythm without evidence of ischemia, T-wave abnormality or arrhythmia. [id number], Complete Coding Level of Care Code Est Pt Level 4 (06961) Diagnoses Chest pressure R07.89 Morbid obesity with BMI of 50.0-59.9, adult E66.01; Z68.43 Family history of connective tissue disease Z82.69 CPT Codes EKG - CPT: 69986-[id number], Complete ([id number]) Assessment & Plan Assessment & Plan (1) Chest pressure: Code(s): R07.89 - Other chest pain Category: Medical Plan: Patient reporting chest pressure since starting the Aleve and ibuprofen. I advised patient to avoid these medications as she is having adverse drug reactions to them. Her EKG in the office was reassuring and was reviewed with my attending as well. Plan to obtain echocardiogram, chest x-ray and blood work for further evaluation. I reviewed red flag symptoms and when to present for re-evaluation. (2) Morbid obesity with BMI of 50.0-59.9, adult: Code(s): E66.01 - Morbid (severe) obesity due to excess calories; Z68.43 - Body mass index [BMI] 50.0-59.9, adult Category: Medical Plan: Healthy diet and regular exercise is encouraged. (3) Family history of connective tissue disease: Comment: daughter with Angélica Danlos Code(s): Z82.69 - Family history of other diseases of the musculoskeletal system and connective tissue Category: Medical Plan: Patient requesting to be tested for Angélica-Danlos syndrome as she does have a strong family history. Referral was placed to genetics today. Plan The patient is advised to discontinue NSAIDs due to adverse effects and to use Tylenol and heating pads for pain management. An EKG is planned to evaluate the persistent chest pain, and a referral to a machine maintenance supervisor is made to assess for Angélica-Danlos syndrome. Further diagnostic workup includes a chest x-ray and blood work to assess cardiovascular status and rule out other potential causes of symptoms. This note was constructed using voice recognition software. While every effort has been made to ensure accuracy and dry pan feeder, still areas may have been included sometimes these areas may affect the content or meeting of the given symptoms. Total time spent caring for the patient today was 20 minutes. This includes time spent before the visit reviewing the chart, time spent during the visit, and time spent after the visit and documentation. Patient was informed and verbally consented to the use of an ambient scribe for clinic note documentation during this visit. Orders: Orders AMB EKG-In Office Today Z13.6 - Encounter for screening for cardiovascular disorders XR chest 2V Today R07.89 - Other chest pain CA echo transthoracic complete Today R07.89 - Other chest pain, Z82.69 - Family history of other diseases of the musculoskeletal system and connective tissue Complete Blood Count Auto Diff Today R07.89 - Other chest pain, Z00.00 - Encounter for general adult medical examination without abnormal findings B Type Natriuretic Peptide Today R07.89 - Other chest pain Comprehensive Met. Panel Today R07.89 - Other chest pain, Z00.00 - Encounter for general adult medical examination without abnormal findings Referrals Rheumatology Referral M35.7 - Hypermobility syndrome, Z82.69 - Family history of other diseases of the musculoskeletal system and connective tissue Genetics Referral M35.7 - Hypermobility syndrome, Z82.69 - Family history of other diseases of the musculoskeletal system and connective tissue Medications: Discontinued naproxen Discontinued Reason: Patient no longer taking 500 mg PO BID 20 tabs 0RF
[2025-04-03 08:58] VITALS: BP 124/84; PULSE 98; O2SAT 99; BMI 50.0
--- OUTSIDE RECORDS SUMMARY | 2025-04-03 08:58 | XMS_ITS | Clinical Summary ---
[facility] Organization [facility] [address] [place] [address] Care Team Providers Care Tv Technician Name Role Phone Grant Levine MD [...] age to complete this topic Care Teams Tv Technician Relationship Specialty Start Date End Date Grant Levine MD [address] [place] [address] DANNY VALLADARES [id number] PCP - General Internal Medicine 03/06/20
== END 2025-04-03 09:45 | disposition home or self-care (01) ==
LOC: HO.HMCH 08:34
DX: R07.89 Other chest pain (principal); E66.01 Morbid (severe) obesity due to excess calories; Z68.43 Body mass index [BMI] 50.0-59.9, adult; Z82.69 Family history of other diseases of the musculoskeletal system and connective tissue

== ENCOUNTER → 2025-04-03 08:33 | Outpatient (BNVA) | payer OTHER, SELFPAY | DX: E66.01 Morbid (severe) obesity due to excess calories (principal); J45.909 Unspecified asthma, uncomplicated; R07.9 Chest pain, unspecified; M35.7 Hypermobility syndrome; Z68.43 Body mass index [BMI] 50.0-59.9, adult; Z82.69 Family history of other diseases of the musculoskeletal system and connective tissue | CPT/HCPCS: 93005; 96127 ==

== ENCOUNTER 2025-05-10 10:05 | Outpatient (AMB) | payer OTHER, SELFPAY ==
[2025-05-10 10:28] VITALS: BMI 49.2
--- NOTE | 2025-05-10 10:28 | A.OFFVIS_ITS ---
VS Expanded 05/10/25 10:28 Height 5 ft 7 in Weight 313 lb 15.012 oz BMI 49.2 Intake Visit Reasons: morbid obesity Allergies No Known Allergies Allergy (Verified 04/03/25 09:11) Nutrition Presentation Details: Pt presents for MNT f/u for morbid obesity Pt reports working on reducing portion sizes Reports choosing low fat food options (eggs, poultry and lean beef, does not eat fish) reports always since childhood having soft bowels after every meal regardless of meal Has a child who is sensitive to gluten containing foods B: eggs, toast, coffee L: chicken ,soup (carrots/noodles) dinner: chicken and corn snacks:fruit/crackers, poultry yogurt BS Monitoring Most Recent Diabetes Results: Creatinine, (0.5-1.4) 0.63 mg/dL 03/03/25 BUN, (9-16) 10 mg/dL 03/03/25 Sodium, (135-145) 139 mmol/L 03/03/25 Potassium, (3.3-5.1) 3.7 mmol/L 03/03/25 Chloride, (96-108) 106 mmol/L 03/03/25 Carbon Dioxide, (22-29) 25 mmol/L 03/03/25 Calcium, (8.4-10.2) 8.8 mg/dL 03/03/25 AST, (5-31) 20 U/L 03/03/25 ALT, (0-31) 28 U/L 03/03/25 Total Protein, (6.5-8.0) 7.7 g/dL 03/03/25 Albumin, (3.5-5.0) 3.9 g/dL 03/03/25 KCR-Kxjisos-Cr.Jeor Equation Height: 5 ft 7 in Weight: 314 lb Resting Metabolic Rate: 2113.92 Calculated Activity Level: Sedentary Calories Needed to Maintain Weight: 2536.70 [facility] Medical History History of seizure Surgical History History of 2 sections Family History Son Autism Daughter Angélica-Danlos disease Social History Housing: House Alcohol intake: never Patient Tobacco Use Status: Never used Tobacco e-Cigarette/Vaping Use: Never Used Second Hand Smoke Exposure: No service: No Current occupational status: employed Current occupation: [employer] Cognitive needs: No Hearing needs: No Vision needs: Yes (Glasses) Assessment & Plan Assessment & Plan (1) Morbid obesity with BMI of 45.0-49.9, adult: Code(s): E66.01 - Morbid (severe) obesity due to excess calories; Z68.42 - Body mass index [BMI] 45.0-49.9, adult Category: Medical Plan: Wt: 148 Kg ( 02/08 ), 146 kg (04/10), 142 kg (05/11) Est kcal needs as per MSJ: 2500 (40% carb, 30% protein/fat) Est fluid needs as per 25-30 ml/d: 3600 - 4300 Est prot per day as per 1 g/kg bw: 140 Recommend fiber intake : 8-10 g per day and gradually increase to 25-28 g per day for women and 35-38 g for men or as tolerated Recommend sodium intake per day : less than 2300 mg Educated patient on: ( R = reviewed V = verbalizes understanding N/R = needs review N/A = not applicable * Food sources of carbohydrate, adequate serving sizes and its role in various health conditions: R * Differences between complex carbohydrates a simple carbohydrates, role of fiber in diet: R * Lean protein sources of foods: R * Differences between types of fats and role in diet (mono on saturated fat fatty acids, saturated fatty acids, trans fats): R , low fat basic concepts * Food sources of sodium in salt and healthy modifications for heart health in kidney health: R V R/V * Vitamins and minerals: R V N/R * Healthy plate method concept: R * Physical activity: Benefits a precaution: R V N/R * Patient Instructions: Include food sources of omega 3 (1000 mg fish oil/d , nuts, seeds) Incorporate additional foods rich in iron in diet (spinach, beets, oats, tofu) Coding Level of Care Code Nutr Indiv Subseq (66900) Diagnoses Morbid obesity with BMI of 45.0-49.9, adult E66.01; Z68.42 Time Spent (min) 30
--- OUTSIDE RECORDS SUMMARY | 2025-05-10 12:19 | XMS_ITS | Clinical Summary ---
[facility] Organization [facility] Address [address] [place] [address] Care Team Providers Care Opal Miner Name Role Phone Grant Levine MD Primary [...] Cervical Cancer Screening: P ap Smear 2002 Depression Screening 08/17/2024 COVID-19 Vaccine (1 - 2023-2 5 season) 2025 Influenza Vaccine (#1) 2025 RSV Immunization Adult Patie nts (1 - 1-dose 75+ series) 2056 HIB Vaccines Aged Out No longer eligi [...] age to complete this topic Care Teams Opal Miner Relationship Specialty Start Date End Date Grant Levine MD [address] [place] [address] DANNY VALLADARES [id number] PCP - General Internal Medicine 03/06/20
[2025-05-10 13:30] VITALS: BMI 49.2
== END 2025-05-10 11:08 | disposition home or self-care (01) ==
LOC: HO.ENCR 10:05
PROVIDERS: Visit Provider Dietitian, Registered
DX: E66.01 Morbid (severe) obesity due to excess calories (principal); Z68.42 Body mass index [BMI] 45.0-49.9, adult

== ENCOUNTER → 2025-05-10 10:05 | Outpatient (BNVA) | payer OTHER, SELFPAY | PROVIDERS: Visit Provider Dietitian, Registered | DX: E66.01 Morbid (severe) obesity due to excess calories (principal); Z68.42 Body mass index [BMI] 45.0-49.9, adult; Z71.3 Dietary counseling and surveillance | CPT/HCPCS: 97803 ==

== ENCOUNTER 2025-05-16 07:09 | Outpatient (REF) | payer OTHER, SELFPAY ==
--- OUTSIDE RECORDS SUMMARY | 2025-05-16 07:12 | XMS_ITS | Clinical Summary ---
[facility] Organization [facility] Address [address] [place] [address] Care Team Providers Care Photo Booth Operator Name Role Phone Grant Levine MD [...] age to complete this topic Care Teams Photo Booth Operator Relationship Specialty Start Date End Date Grant Levine MD [address] [place] [address] DANNY VALLADARES [id number] PCP - General Internal Medicine 03/06/20
[2025-05-16 07:21] LABS: MANUAL DIFF FLAG NO
[2025-05-16 07:42] LABS: Hematocrit 33.5 % (37.0-47.0); Hemoglobin 10.8 g/dl (12.0-16.0); Imm Gran Abs Auto 0.03 X10*3/uL (0.00-0.03); Imm Gran Pct Auto 0.4 % (0.0-0.4); Lymphocytes Absolute Auto 2.3 X10*3/uL (1.2-4.9); Mean Corpuscular HGB Conc 32.2 g/dl (31.0-35.0); Mean Corpuscular Hemoglobin 24.8 pg (27.0-33.0); Mean Corpuscular Volume 77.0 fL (80.0-98.0); NRBC Abs Auto 0.000 X10*3/uL (0.0-0.012); NRBC Pct Auto 0.0 /100WBC (0.0-0.2); Platelet Count 253 X10*3/uL (160-400); Red Blood Count 4.35 X10*6/uL (4.20-5.50); White Blood Count 8.0 X10*3/uL (4.8-10.8)
[2025-05-16 08:19] LABS: Alanine Aminotransferase 35 U/L (0-31); Albumin Level 3.7 g/dL (3.5-5.0); Alkaline Phosphatase 70 U/L (39-117); Anion Gap 10 (12-20); Aspartate Amino Transferase 21 U/L (5-31); Blood Urea Nitrogen 14 mg/dL (9-16); Calcium 8.6 mg/dL (8.4-10.2); Carbon Dioxide 26 mmol/L (22-29); Chloride 109 mmol/L (96-108); Estimated Glomerular Filt Rate > 60; NT Pro B Type Natriuretic Pept 22.0 pg/mL (<300); Potassium 3.9 mmol/L (3.3-5.1); Sodium 141 mmol/L (135-145); Total Protein 7.1 g/dL (6.5-8.0)
== END 2025-05-16 07:10 | disposition home or self-care (01) ==
LOC: HO.LAB 07:09
DX: Z00.00 Encounter for general adult medical examination without abnormal findings (principal); R07.89 Other chest pain
CPT/HCPCS: 36415; 80053; 83880; 85025